=== PATIENT | male | born 1980 | race African-American/Black ===

== ENCOUNTER 2016-07-06 13:36 | Inpatient (IN) | payer MEDICARE ==
[~2016-07-06] VITALS: Ht 190.5 cm; Wt 124.3 kg
[~2016-07-06 13:36] MED LIST: ALLEGRA 60 MG T60 MG PO; APRESOLINE50 MG PO; BENADRYL25 MG PO; BENADRYL50 MG PO; BENICAR40 MG PO; BUPROPION PO; CARAFATE1 G PO; CATAPRES0.1 MG PO; COMBIVENT RESPIM4 GM INH; COREG12.5 MG PO; COREG25 MG PO; COUMADIN2.5 MG PO; COUMADIN5 MG PO; COZAAR100 MG PO; HYDRALAZINE HCL25 MG PO; HYDROCODONE-APA1 TAB PO; KLONOPIN1 MG PO; LEVEMIR100 U/M1 SQ; LEXAPRO10 MG PO; LOPRESSOR25 MG PO; LYRICA75 MG PO; METOPROLOL TAR100 M1; METOPROLOL TAR100 M1 PO; NEPHRO-VITE RX1 TAB PO; NEPHROCAPS SOFTG1 MG PO; NORCO 7.5/325 T1 TA1 PO; NORVASC10 MG PO; NOVOLIN R100 U/ML SQ; NOVOLOG100 U/M1 SQ; PHOSLO667 MG PO; PLAVIX75 MG PO; PREDNISONE10 MG PO; PREDNISONE5 MG; PREDNISONE50 MG PO; PRILOSEC20 MG PO; REGLAN5 MG PO; RENO; RENVELA800 MG PO; ROCALTROL0.25 MCG PO; SENSIPAR30 MG PO; SENSIPAR60 MG PO; SENSIPAR90 MG PO; SEROQUEL25 MG PO; SODIUM BICARBO650 MG PO; TUMS500 MG PO; ULTRAM50 MG PO; WELLBUTRIN SR150 MG PO; ZYRTEC10 MG PO
[2016-07-06] MEDS ORDERED: LEVEMIR100 U/M1 SC ×2 (14:10→14:12)
[2016-07-06 14:35] VITALS: BP 194/108; BMI 32.8
[2016-07-06 16:03] LABS: BASOPHILS 0.9 % (0.0-2.0); EOSINOPHILS 13.2 % (0-7); HEMATOCRIT 32.9 % (42.0-54.0); HEMOGLOBIN 10.6 g/dL (13.5-17.5); IMMATURE GRANULOCYTES 0.2 % (0-5); LYMPHOCYTES 23.1 % (15-50); MCH 30.4 pg (26.0-34.0); MCHC 32.2 g/dL (31.0-37.0); MCV 94.3 fL (80.0-100.0); MEAN PLATELET VOLUME 10.9 fL (7.4-10.4); NEUTROPHILS 55.6 % (40-80); PLATELET COUNT 130 10x3/uL (130-400); RBC 3.49 10x6/uL (4.20-6.10); RDW 13.8 % (11.5-14.5); WBC 5.5 10x3/uL (4.8-10.8)
[2016-07-06 16:16] LABS: INR 0.94 (0.85-1.17); PROTIME 12.4 SECONDS (11.6-15.0)
[2016-07-06 16:20] LABS: ALBUMIN 3.2 g/dL (3.4-5.0); ANION GAP 17.7 mmol/L (8-16); BILIRUBIN - TOTAL 0.33 mg/dL (0.2-1.3); CALCIUM 7.2 mg/dL (8.5-10.1); CARBON DIOXIDE 29.2 mmol/L (21.0-32.0); CREATININE - SERUM 12.9 mg/dL (0.6-1.3); PHOSPHOROUS 5.3 mg/dL (2.5-4.9); POTASSIUM - SERUM 4.9 mmol/L (3.5-5.1); PROTEIN - SERUM 7.1 g/dL (6.4-8.2)
--- NOTE | 2016-07-06 21:08 | NUR ---
SET UP FOR DIALYSIS. PT IS AAOX3. ACCESSED AVF ARTERIAL LINE. BLOOD FLASH AND GOOD PUMPING. WAS ABLE TO ACCESS VENOUS SITE WITH DIFFICULTY. WENT TO FILL CANNULA WITH BLOOD AND BOTH ARTERIAL AND VENOUS SITES CLOTTED. TOOK NEEDLES OUT AND HELD PRESSURE. PT DIDN'T WANT TO BE STUCK AGAIN. CALLED ANJU ARORA APN AND LET HER KNOW SITUATION. REVIEWED LABS WITH HER. HOLDING DIALYSIS TONIGHT AND WILL DO AFTER FISTULAGRAM PT WANTS TO TAKE 4-5L OF FLUID OFF.
--- NOTE | 2016-07-06 22:59 | NUR ---
PT B/P IS ELEVATED 220/112 MANUALLY. CALL TO RENAL MULTIPLE NEEDLE STITCHER UNIX DEVELOPER. SPOKE WITH ANJU ARORA, NEW ORDERS RECEIVED FOR HS MEDICATIONS. PT AND HIS SPOUSE UPDATED ON POC, THEY BOTH VERBALIZED UNDERSTANDING. WILL MONITOR.
[2016-07-07] VITALS (7 sets, daily range): BP systolic 171–222; BP diastolic 87–120; Ht 190.5 cm; Wt 124.3 kg
[2016-07-07 05:38] LABS: BASOPHILS 0.5 % (0.0-2.0); EOSINOPHILS 1.1 % (0-7); HEMATOCRIT 34.9 % (42.0-54.0); HEMOGLOBIN 11.4 g/dL (13.5-17.5); IMMATURE GRANULOCYTES 0.4 % (0-5); LYMPHOCYTES 14.2 % (15-50); MCH 30.1 pg (26.0-34.0); MCHC 32.7 g/dL (31.0-37.0); MEAN PLATELET VOLUME 11.2 fL (7.4-10.4); MONOCYTES 1.8 % (2-11); RBC 3.79 10x6/uL (4.20-6.10); RDW 13.6 % (11.5-14.5); WBC 5.6 10x3/uL (4.8-10.8)
[2016-07-07 05:46] LABS: MCV 92.1 fL (80.0-100.0); PLATELET COUNT 158 10x3/uL (130-400)
[2016-07-07 05:49] LABS: ANION GAP 17.5 mmol/L (8-16); CALCIUM 7.5 mg/dL (8.5-10.1); CARBON DIOXIDE 25.6 mmol/L (21.0-32.0); CREATININE - SERUM 14.2 mg/dL (0.6-1.3)
[2016-07-07 05:51] LABS: POTASSIUM - SERUM 7.1 mmol/L (3.5-5.1)
[2016-07-07 05:52] LABS: INR 0.9 (0.85-1.17)
--- NOTE | 2016-07-07 06:09 | NUR ---
SPOKE WITH DELMAR PURDY VALIDATION LEADER FOR RENAL. NOTIFIED OF PT K+ BEING 7.1 THIS AM. ALSO NOTIFIED OF PT B/P REMAINING HYPERTENSIVE. ORDER RECEIVED FOR ONE TIME DOSE OF CLONIDINE AND TO HAVE PT REDRAWN ON LAB THIS AM.
--- NOTE | 2016-07-07 06:40 | NUR ---
CALL FROM OR RECEIVED TO PRE OP PT AT THIS TIME. DONE PER ORDERS. EXPLAINED TO RANJIT IN SURGERY PT WITHOUT ORDER TO OBTAIN CONSENT OR FOR WHAT PROCEDURE. ALSO EXPLAINED PT IS WITHOUT IV AND SHE STATED THEY COULD DO AN IV WHILE HE WAS IN SURGERY. PT GIVEN ALL PO PRE OP MEDS AND ONE TIME CLONIDINE ORDER AT THIS TIME.
--- NOTE | 2016-07-07 07:07 | NUR ---
SPOKE WITH DR DUMONT, RECEIVED ORDER TO OBTAIN CONSENT. EXPLAINED TO DR DUMONT THAT PT'S K+ RESULTED @ 7.1 THIS AM. ALSO EXPLAINED THAT RESULTS FROM REDRAW IS PENDING. STATES TO LET SURGERY KNOW PT IS NOT READY TO GO TO OR UNTIL NEW K+ RESULTS. PT AND SPOUSE UPDATED ON POC. VERBALIZE UNDERSTANDING. CONSENTS SIGNED AT THE BEDSIDE.
--- NOTE | 2016-07-07 07:53 | NUR ---
ALERT AND ORIENTED X4. POTASSIUM REDRAW RESULT 7.5. ANJU NOTIFIED. 30mL KAYEXALATE ORDERED. OR REFUSE KAYEXALATE. PLAN FOR HEMOSPLIT PLACEMENT FOR DIALYSIS POST OP. CONSENTS FOR PROCEDURE SIGNED ON CHART. TAKEN TO PROCEDURE VIA BED. CONTINUE PLAN OF CARE AND SAFETY PRECAUTIONS.
--- NOTE | 2016-07-07 10:00 | NUR ---
RETURN TO ROOM VIA BED FROM SURGERY. HEMOSPLIT PLACED RT THIGH. IV PLACED RT WRIST SL. BP-202/104, P-77, R-16, O2-99%RA, T-97.5. SEDATED, EASILY TO AROUSE. CONTINUE PLAN OF CARE. INITIATE TELEMETRY MONITORING. 86 SINUS RHYTHM ON TELEMETRY. BED LOCKED AND LOW. CALL LIGHT IN REACH. TWO SIDERAILS UP.
--- NOTE | 2016-07-07 10:01 | NUR ---
BACK FROM OR. VS STABLE. HAS GROIN CVL. DIALYSIS WILL PUT PROPER DRESSING ON. PIV IN R HAND. WILL CONTINUE TO MONITOR.
--- NOTE | 2016-07-07 18:22 | NUR ---
ALERT AND ORIENTED X4. SITTING UP IN BED. CONSENTS SIGNED ON CHART FOR PROCEDURE 07/08/16. BP-173/116. NO PRN BP MEDICATIONS ORDERED. PAGE JERRY, RENAL FOOD CASHIER. CONTINUE PLAN OF CARE AND SAFETY PRECAUTIONS.
--- NOTE | 2016-07-07 22:56 | NUR ---
INITIAL ROUNDS COMPLETED AT 1915 HRS. PT RESTING WITH EYES CLOSED. RESP EVEN AND REGULAR. ASSESSMENT COMPLETED AT 2000 HRS. IV TO INNER R WRIST SL. R THIGH HEMOSPLIT NOTED. ROYAL. PALPABLE PERIPHERAL PULSES. OLD FISTULA NOTED TO UPP R ARM. FISTULA TO LFA WITH SLUGGISH THRILL. PM FSBS 387. REGULAR INSULIN GIVEN SUB-Q PE S/S. PM SNACK SERVED. PM BP 178/98. Funmi MCKENZIE APN CALLED AT 2230 REGARDING BP AND BS OF 387 AND TX. NEW ORDERS RECEIVED AND NOTED. PT CURRNTLY EATING A SNACK. WILL CONTINUE TO MONITOR. SR UP X2,CALL LIGHT PAVAN GONZALES. .
[2016-07-08] VITALS (7 sets, daily range): BP systolic 131–240; BP diastolic 65–109
--- NOTE | 2016-07-08 00:05 | NUR ---
NORCO 10/325, CATATPRES 0.1MG AND LOPRESSOR 50MG PO GIVNE AT 2338 HRS. REINFORCED NPO AFTER MIDNIGHT. PT STATED UNDERSTANING. MOTHER AT BEDSIDE. WILL CONTINUE TO MONITOR.
--- NOTE | 2016-07-08 00:52 | NUR ---
DEMENTIA PROGRAM DIRECTOR STATES SBP 240. RECHECKED MANUALLY WITH RESULTS 228/108. IV TO INNER R WRIST INFILTRATED. RENAL SERVICES CALLED.
--- NOTE | 2016-07-08 00:57 | NUR ---
Funmi MCKENZIE APN RETUNED PAGE. INFORMED OF CURRENT BP AND NO IV ACCESS. NEW ORDERS RECEIVED AND NOTED.
--- NOTE | 2016-07-08 01:05 | NUR ---
IV TO INNER R WRIST DC'D WITH CATHETER INTACT. PT TOLERATED WELL. LIFE EDUCATOR INFORMED OF PT'S BP AND NEW BP MEDS ORDERED PER RENAL SERVICES. WILL CONTINUE TO MONITOR.
--- NOTE | 2016-07-08 01:21 | NUR ---
BENICAR 40MG, NORVASC 10MG AND CATAPRES 0.1 MG PO GIVEN WITH A SIP OF WATER. WILL RECHECK BP IN 90 MINUTES. WILL CONTINUE TO MONITOR.
--- NOTE | 2016-07-08 03:02 | NUR ---
BP RECHECKED WITH 194/99 RESULTED. BP TRENDING DOWN. WILL CONTINUE TO MONITOR.
--- NOTE | 2016-07-08 04:13 | NUR ---
PT AWAKE; DENIES ANY DISCOMFORT. FAMILY AT BEDSIDE.
--- NOTE | 2016-07-08 04:31 | NUR ---
AM HIBICLENS BATH DONE, BED LINENS CHAMGED. WILL CONTINUE TO MONITOR.
--- NOTE | 2016-07-08 06:50 | NUR ---
AM FSBS 378. NO COVERAGE PT NPO BABITA SURGERY. BP RECHECKED WITH SBP 200. WILL CONTINUE TO MONITOR.
[2016-07-08 06:53] LABS: BASOPHILS 0.1 % (0.0-2.0); EOSINOPHILS 0 % (0-7); HEMATOCRIT 32.9 % (42.0-54.0); HEMOGLOBIN 10.9 g/dL (13.5-17.5); IMMATURE GRANULOCYTES 0.4 % (0-5); LYMPHOCYTES 8.7 % (15-50); MCH 30.9 pg (26.0-34.0); MCHC 33.1 g/dL (31.0-37.0); MCV 93.2 fL (80.0-100.0); MEAN PLATELET VOLUME 10.2 fL (7.4-10.4); MONOCYTES 8.9 % (2-11); NEUTROPHILS 81.9 % (40-80); PLATELET COUNT 163 10x3/uL (130-400); RBC 3.53 10x6/uL (4.20-6.10)
[2016-07-08 07:02] LABS: WBC 7.6 10x3/uL (4.8-10.8)
[2016-07-08 07:16] LABS: ANION GAP 21.7 mmol/L (8-16); CALCIUM 7.2 mg/dL (8.5-10.1); CARBON DIOXIDE 25.6 mmol/L (21.0-32.0); CREATININE - SERUM 11.1 mg/dL (0.6-1.3); POTASSIUM - SERUM 5.3 mmol/L (3.5-5.1)
[2016-07-08 07:23] LABS: INR 0.93 (0.85-1.17); PROTIME 12.3 SECONDS (11.6-15.0)
--- NOTE | 2016-07-08 07:43 | NUR ---
PAGED JERRY REYEZ NP TO SEE ABOUT PTS HOME MEDICATIONS BECAUSE NO MEDICATIONS WERE ORDERED TO BE GIVEN THIS AM AND PER REPORT PT DOES TAKE BLOOD PRESSURE MEDICATIONS. WILL AWAIT CALLBACK.
--- NOTE | 2016-07-08 07:50 | NUR ---
0715 AM ROUNDING- RECEIVED REPORT FROM NATURAL RESOURCES PROFESSOR NURSE ANEL LAWSON. PT IS CURRENTLY LAYING IN BED ON LEFT SIDE WITH EYES CLOSED RESTING. GUEST AT BEDSIDE. ON MONITOR SHOWING SR, HR 70. FSBS ACHS, 378 THIS AM THAT WAS NOT COVERED BY NATURAL RESOURCES PROFESSOR NURSE BECAUSE PT IS NPO. NPO CURRENLTY FOR PROCEDURE THIS AM. CONSENTS ARE SIGNED AND IN CHART. PT HAS NO IV ACCESS CURRENLTY, PER NATURAL RESOURCES PROFESSOR NURSE PT IS AN EXTREMLEY HARD STICK AND THEY COULD NOT GET ANOTHER ONE ON NATURAL RESOURCES PROFESSOR. JERRY MCKENZIE NP IS AWARE. ON ROOM AIR. HEMOSPLIT SEEN TO RIGHT THIGH FOR DIALYSIS (PT DIALYZED YESTERDAY). RESERVE LEFT ARM FOR AVF, PT IS GOING FOR PROCEDURE THIS AM FOR A AVF REVISION PER REPORT.
--- NOTE | 2016-07-08 08:14 | NUR ---
0815- PRE-OP MEDICATIONS GIVEN ORDERED AND INSTRUCTED BY OR NURSE.
--- NOTE | 2016-07-08 08:21 | NUR ---
DR. BRYANT CALLED TO CHECK ON PT. INFORMED HIM OF PTS BLOOD PRESSUE AND PT NOT HAVING ANY ORDERS IN [facility] FOR HOME BLOOD PRESSURE MEDICATION. DR. BRYANT INFORMED ME TO TALK TO JERRY MCKENZIE NP AND SEE ABOUT GETTING HIM SOMETHING FOR BLOOD PRESSURE BEFORE GOING BACK TO SURGERY. I ALSO INFORMED DR. BRYANT THAT I GAVE PT HIS PRE-OP MEDICATIONS AND LOPRESSOR WAS ONE OF THEM. DR. BRYANT STATED THAT WOULD NOT PROBABLY BE ENOUGH AND TO SEE ABOUT GETTING SOMETHING ELSE WHEN TALKING WITH JERRY MCKENZIE NP. WILL CALL JERRY MCKENZIE NP AND AWAIT NEW ORDERS. WILL CONTINUE TO MONITOR.
--- NOTE | 2016-07-08 08:24 | NUR ---
SPOKE WITH JERRY MCKENZIE NP. NEW ORDERS RECEIVED FOR CATAPRES 0.2MG. WILL GIVE PT THIS MEDICATION ORDERED AND CONTINUE TO MONITOR.
--- NOTE | 2016-07-08 08:38 | NUR ---
PAGED OR TO INFORM THEM OF PTS BLOOD SUGAR AND IF THEY WANT ME TO COVER PT OR NOT WITH ORDERED INSULIN. NO ANSWER. WILL TRY AND CALL BACK AGAIN BEFORE THEY COME GET PT.
--- NOTE | 2016-07-08 08:39 | NUR ---
CALLED OR AGAIN TO INFORM THEM ABOUT PTS BLOOD SUGAR. NO ANSWER. WILL TRY AND CALL BACK OR NOTIFY THEM WHEN THEY COME TO GET PT. PTS BLOOD SUGAR IS 347 THAT WAS NOT COVERED BY GENERAL SCRAP WORKER NURSE BECAUSE PT IS NPO FOR PROCEDURE. I WAS TRYING TO SEE IF OR WANTED ME TO GO AHEAD AND TX PER SLIDING SCALE OR HOLD UNTIL AFTER PROCEDURE. WILL CONTINUE TO MONITOR AND TRY TO GET AHOLD OF OR.
--- NOTE | 2016-07-08 09:41 | NUR ---
0830- PT TO OR VIA BED.
[2016-07-08 10:13] LABS: HEPATITIS C ANTIBODY <0.1 (0.0-0.9)
--- NOTE | 2016-07-08 11:35 | NUR ---
1109- RECEIVED REPORT FROM ANEL VASQUEZ IN OR. PT IS AWAKE AND ALERT WITH NO C/O OF PAIN AT THIS TIME. BLOOD PRESSURE IS 142/79. BLOOD SUGAR IS [address] BRYANT PT CAN RESUME A ADA DIET PER ANEL VASQUEZ IN OR. PEDRO STATES THAT DR. BRYANT WROTE DOWN ORDERS ON PRESCRIPTION SHEETS DUE TO COMPUTERS BEING DOWN. ANEL VASQUEZ STATES DR. BRYANT STATES TO QUESTION DIALYSIS TODAY AND D/C HOME WHEN OKAY WITH RENAL. DR. BRYANT ALSO STATES TO CALL RENAL FOR MEDICATION ORDERS. WILL AWAIT PT ARRIVAL. 1121- PT BACK FROM OR VIA BED ACCOMPANIED BY OR STAFF MEMBERS. WILL START VITALS AND CONTINUE TO MONITOR. WILL AWAIT NEW ORDERS.
--- NOTE | 2016-07-08 12:03 | NUR ---
JERRY MCKENZIE NP ON UNIT. INFORMED HER THAT PTS HOME MEDICATIONS WERE D/C ON SHIFT LAST NIGHT FOR SOME REASON. ASKED JERRY TO RESTART PTS HOME MEDICATIONS. JERRY MCKENZIE NP STATED OKAY. I INFORMED JERRY MCKENZIE NP THAT PER ANEL VASQUEZ IN OR, DR. BRYANT WANTED RENAL TO LOOK AT PTS MEDICATIONS AND RESTART SOMETHING FOR BLOOD PRESSURE AND THAT DR. BRYANT WANTED US TO CALL RENAL FOR MEDICATIONS IN GENERAL. JERRY MCKENZIE NP STATED OKAY. WILL CONTINUE TO MONITOR AND AWAIT NEW ORDERS.
--- NOTE | 2016-07-08 18:35 | NUR ---
PT LAYING IN BED ON BACK WITH EYES OPEN WATCHING TV. IS AT BEDSIDE. NO NEED AT CURRENT TIME. WILL CONTINUE TO MONITOR.
[2016-07-09 00:12] VITALS: BP 165/80
--- NOTE | 2016-07-09 00:24 | NUR ---
PT WITH PAIN TO LEFT ARM INCISIONAL AREA. MEDICATED WITH PAIN PILL/NORCO X 1. AT BEDSIDE. CPOC.
--- NOTE | 2016-07-09 01:44 | NUR ---
PT RESTING IN BED, TOOK A PAIN PILL EARLIER AND IS NOW LYING WITH EYES CLOSED. LEFT ARM IS ELEVATED ON PILLOW. DRESSING TO LEFT UPPER ARM INCISION SITE IS C/D/I. RIGHT GROIN HEMOSPLIT. NONLABORED RESPIRATIONS ON ROOM AIR. SR PER TELEMETRY. AT BEDSIDE. CPOC.
[2016-07-09 04:00] VITALS: BP 160/81
--- NOTE | 2016-07-09 07:15 | NUR ---
0553 AM FSBS 62. INFORMED PT THAT WOULD BRING HIM SOME JUICE AND CRACKERS AND TO MAKE SURE HE EATS A GOOD BREAKFAST WHEN IT COMES. THIS NURSE THEN WENT TO SEVERAL OTHER ROOMS AND DID NOT RETURN IMMEDIATELY WITH THE JUICE AND CRACKERS, SO HIS CAME TO THE NURSES STATION AND REQUESTED IT. SHE WAS PROVIDED WITH THE JUICE AND CRACKERS AND TOOK THEM BACK TO HER . THIS NURSE WAS GIVING REPORT, RECOLLECTION OF FSBS BEING 62 CAME UP AND ASKED DNA SEQUENCING ASSOCIATE TO GO TO ROOM WITH JUICE AND CRACKERS, NOT KNOWING THAT HAD ALREADY COME OUT OF ROOM AND GOTTEN SOME. NIGHT DNA SEQUENCING ASSOCIATE DELIVERED THE JUICE AND CRACKERS. WHEN DAY DNA SEQUENCING ASSOCIATE ROUNDED, PT'S VERY UPSET WITH THIS NURSE THAT NO FOLLOW UP HAD BEEN DONE. RECHECKED PT'S FSBS AT THIS TIME AT IT WAS NOW 168. APOLOGIZED TO PT AND SPOUSE ON LAPSE IN COMING BACK.
--- NOTE | 2016-07-09 07:44 | NUR ---
AM ROUNDING- RECEIVED REPORT FROM FENCE POST DRIVER NURSE LATESHA BRUNNER. PT IS CURRENTLY SITTING UP IN BED WITH EYES OPEN RESTING. C/O PAIN FROM RIGHT LEG. IS AT BEDSIDE. ON MONITOR SHOWING SR, HR 77. FSBS ACHS, 62 THIS AM. LATESHA BRUNNER STATES SHE GAVE PT APPLE JUICE AND GRAHM CRACKERS AND RECHECKED PTS BS AND REPORTED TO BE IT IS NOW IN THE NORMAL RANGE. PT HAS NO IV (DOCTORS ARE AWARE). RIGHT GROIN HEMOSPLIT FOR DIALYSIS. RESERVE LEFT ARM FOR AVF (PT HAD FISTULA GRAM YESTERDAY ON LEFT AVF) WITH + BRUIT, + THRILL. PT HAS OLD AVF SITE TO RIGHT ARM THAT DOES NOT WORK ANYMORE PER REPORT. PT IS SUPPOSE TO DIALYZE THIS AM PER FENCE POST DRIVER NURSE. WILL GET PT PRN NORCO FOR PAIN AND CONTINUE TO MONITOR.
[2016-07-09 08:40] VITALS: BP 149/84
[2016-07-09 13:55] VITALS: BP 157/84
[2016-07-09 15:58] VITALS: BP 155/79
--- NOTE | 2016-07-09 16:12 | NUR ---
PT TO DIALYSIS VIA WHEELCHAIR.
--- NOTE | 2016-07-09 17:19 | NUR ---
PT IN DIALYSIS. NO NEED AT CURRENT TIME. WILL CONTINUE TO MONITOR.
--- NOTE | 2016-07-09 19:29 | NUR ---
PT IN DIALYSIS. DIALYSIS CALLED AND STATED PT BEDLIVES BS IS LOW. BS CHECKED WITH RESULTS OF 150.
--- NOTE | 2016-07-09 19:52 | NUR ---
HEMODIALYSIS COMPLETED, NET FLUID REMOVAL OF 5000ML, TOLERATED WELL, BLOOD RETURNED, LINES FLUSHED, HEPARIN DWELLING USING ASEPTIC TECHNIQUE. DRESSING CHANGED TO SITE ASWELL.
[2016-07-09 20:15] VITALS: BP 168/87
--- NOTE | 2016-07-09 23:43 | NUR ---
PT BACK FORM DIALYSIS AT APPROX 2005 HRS. HAS C/O R THIGH PAIN. NORCO PO GIVEN. ASSESSMENT COMPLETED AT 2030 HRS. VSS. SR PER CM HR 92. LAVF WITH GOOD BRUIT AND THRILL. OLD FISTULA NOTED TO UPPER R ARM. 1+ EDEMA NOTED TO L ARM. R THIGH HEMOSPLIT CLEAN, DRY AND INTACT. PALBABLE PEDAL PULSES. PM FSBS 162. SCHEDULED LEVIMIT GIVEN. PM MEDS GIVEN. PM SNACK AND SNADWICH TRAY GIVEN. PT CURRENTLY RESTING WITH EYES CLOSED. RESP EVEN AND REGULAR. SR UP X2, CALL LIGHT WITHIN REACH. FIANCEE AT BEDSIDE.
--- NOTE | 2016-07-10 00:30 | NUR ---
PT RESTING WITH EYES CLOSED. RESP EVEN AND REGULAR. SR UP X2, CALL LIGHT WITHIN REACH.
[2016-07-10 01:00] VITALS: BP 150/83
--- NOTE | 2016-07-10 02:15 | NUR ---
PT AWAKE, DENIES ANY DISCOMFORT. WILL CONTINUE TO MONITOR.
--- NOTE | 2016-07-10 04:39 | NUR ---
PT AWAKE; DENIES ANY DISCOMFORT. WILL CONTINUE TO MONITOR.
[2016-07-10 04:45] VITALS: BP 151/88
--- NOTE | 2016-07-10 06:33 | NUR ---
VSS THROUGHOTU NGIHT. SR PER CM. PT STATED NORCO HELPED PAIN. NEEDS MET; WILL CONTINUE TO MONITOR.
[2016-07-10 07:58] VITALS: BP 143/90
--- NOTE | 2016-07-10 12:36 | NUR ---
RETURN TO ROOM FROM DIALYSIS. BP-140/65, SINUS TACH 102bpm ON TELEMETRY. COMPLAINS OF LIGHT HEADEDNESS. ENCOURAGE DEEP BREATHING. FAMILY AT BEDSIDE. EATING LUNCH. DENIES SOB. CONTINUE TO MONITOR. CONTINUE SAFETY PRECAUTIONS.
--- NOTE | 2016-07-10 15:46 | NUR ---
SPOKE WITH PEDRO/DR. DUMONT'S OFFICE VIA PHONE TO LET HER KNOW THE PATIENT WAS DISCHARGING AND THAT A PROCEDURE NEEDED TO BE SCHEDULED FOR PT WITH DR. DUMONT IN 3 WEEKS. SHE ADVISED THAT DR. DUMONT'S OFFICE WOULD TAKE CARE OF SCHEDULING THE PROCEDURE AND CONTACT PATIENT WITH ALL INFORMATION
[2016-07-10 16:40] VITALS: BP 134/65
--- NOTE | 2016-07-10 17:21 | NUR ---
ALERT AND ORIENTED X4. SITTING UP IN BED EATING DINNER. DENIES PAIN OR SOB. DC HELD OFF UNTIL MORNING. BUS TRANSPORT UNABLE TODAY, MUST BE CALLED IN MORNING. FAMILY AT BEDSIDE. DENIES FEELING LIGHT HEADED. SINUS RHYTHM 90bpm ON TELEMETRY. CONTINUE PLAN OF CARE AND SAFETY PRECAUTIONS.
--- NOTE | 2016-07-10 20:00 | NUR ---
ASSESSMENT DONE. PT SITTING UP IN BED A/O, WATCHING TV. MOTHER AT BEDSIDE. HEMESPLIT TO RT GROIN, DRESSING CLEAN, DRY, AND INTACT. PT C/O PAIN 09/23 AT [facility] SITE. PT HAD PRN NORCO AT 1735. PT STATES PAIN IS "REALLY JUST WHEN I MOVE MY LEG." NO DISTRESS NOTED. CALL LIGHT WITH IN REACH. WILL CONT. TO MONITOR.
[2016-07-10 21:02] VITALS: BP 146/72
[2016-07-11 00:14] VITALS: BP 155/56
--- NOTE | 2016-07-11 00:54 | NUR ---
RUNWAY MODEL AT BEDSIDE, NEEDS ADDRESSED AT THIS TIME. CALL LIGHT IN REACH. WILL CONT TO MONITOR.
--- NOTE | 2016-07-11 02:47 | NUR ---
PT SLEEPING. RESP EVEN AND UNLABORED. NO DISTRESS NOTED. FAMILY AT BEDSIDE. CALL LIGHT WITH IN REACH. WILL CONT. TO MONITOR.
[2016-07-11 05:11] VITALS: BP 134/78
[2016-07-11 07:56] VITALS: BP 154/83
--- NOTE | 2016-07-11 08:50 | NUR ---
Patient Name: ROCCO DURAN Encounter No: [id number] : 1980 Primary Insurance: MEDICARE A & B Anticipated DC Date: 07-10-2016 Planned Disposition: Home External Planned Provider: [facility] DCP follow-up note: CM PLACED CALL TO [facility] TO ARRANGE VAN TRANSPORTATION FOR PATIENT. CM SPOKE WITH ALEXA AT [facility] WHO STATED [facility] WILL ARRIVE AROUND NOON TODAY TO TRANSPORT PATIENT AND HIS MOTHER BACK TO [place]. CM FAXED DC INFO TO [facility] TO BEGIN HH SERVICES. HH AGENCY WILL CALL PATIENT TO ARRANGE FIRST HH VISIT. NO FURTHER DC NEEDS VOICED. Alexa Chery RN, CM
--- NOTE | 2016-07-11 09:40 | NUR ---
Patient Name: ROCCO DURAN Encounter No: [id number] : 1980 Primary Insurance: MEDICARE A & B Anticipated DC Date: 07-10-2016 Planned Disposition: Home External Planned Provider: [facility] DCP follow-up note: CM PLACED CALL TO [facility] TO ARRANGE VAN TRANSPORTATION FOR PATIENT. CM SPOKE WITH ALEXA AT [facility] WHO STATED [facility] WILL ARRIVE AROUND NOON TODAY TO TRANSPORT PATIENT AND HIS MOTHER BACK TO [place]. NO FURTHER DC NEEDS VOICED. Alexa Chery RN, CM
--- NOTE | 2016-07-11 09:42 | NUR ---
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 Discharge Planning Comments: * Is the patient Alert and Oriented? Yes 0 * How many steps to enter\exit or inside your home? 1 0 * PCP ANALISA ALFONSO 0 * Pharmacy [facility] 0 * Preadmission Environment Home with Family 0 * ADLs Partial Dependent 0 * Partial ADLs (Assistance needed) Bathing Dressing Medication Management 0 * Equipment Glucometer 0 * Other Equipment NO MEDICAL EQUIPMENT PROVIDER PREFERENCE 0 * List name and contact numbers for known caregivers / representatives who currently or will assist patient after discharge: DEEP ARIAS, 0 * Community resources currently utilized Other 0 * Please name any agencies selected above. [facility], WAS DOING HOME DIALYSIS- TRANSITION NOW TO OUTPATIENT HEMODIALYSIS: [facility], T/T/SA, 0700 AM [facility] (MEDICAID) TRANSPORT BUS 0 * Additional services required to return to the preadmission environment? Yes * Can the patient safely return to the preadmission environment? Yes 0 * Has this patient been hospitalized within the prior 30 days at any hospital? No [address] BLANK, RN CHRISTINA DALEY CONTACTED DAYANA ELLIS OF [facility] REGARDING ORDER TO ARRANGE OUTPATIENT DIALYSIS. CM MET WITH PT IN ROOM TO DISCUSS DISCHARGE PLANNING AND NEEDS. PT REPORTS LIVING AT HOME DEPENDENT UPON HIS FIANCE FOR ASSISTANCE WITH MEDICATION MANAGEMENT, BATHING AND DRESSING. PT HAS A GLUCOMETER WITH NO MEDICAL EQUIPMENT PROVIDER. PT HAS NO OUTSIDE SERVICES ASSISTING IN THE HOME. CM DISCUSSED AVAILABILITY OF HOME HEALTH, REHAB SERVICES AND MEDICAL EQUIPMENT. PT REPORTS HE NEEDS OUTPATIENT HEMODIALYSIS AFTER HE RESTARTED HOME DIALYSIS AND HIS ACCESS BECAME CLOGGED AGAIN; PT ALSO REPORTS NEEDING A RIDE HOME TODAY FOR HE AND HIS FIANCE, THEY USUALLY TAKE THE SEAT BUS AND HAVE NO FAMILY OR FRIENDS TO COME AND PICK THEM UP. PT DENIES HAVING FINANCIAL RESOURCES TO GET HIM HOME FROM [place]. IMPORTANT MESSAGE FROM MEDICARE PROVIDED AND EXPLAINED. CM CALLED DAYANA ELLIS OF [facility] WHO PROVIDED OUTPATIENT SCHEDULE AT [facility], T/T/SA, 0700AM, FIRST APPOINTMENT FOR 07-13-16. CM CALLED [facility], , TO ARRANGE TRANSPORT HOME FOR PT AND HIS FIANCE. CM WAS ADVISED BY ANJU THAT IT WAS TOO LATE TODAY AND TO CALL BACK FIRST THING IN THE MORNING. CM NOTIFIED PT WHO DENIES HAVING ANY OTHER WAY HOME AND ASKED CM TO ARRANGE SE[facility] BUS FOR TOMORROW MORNING. CM CALLED [employer] [facility], RECEIVED ESTIMATE OF $375 FOR TWO PASSENGERS FROM [employer] TO [place]. CM SPOKE TO DIRECTOR [facility] WHO ADVISED THAT [facility] WILL NOT BE AUTHORIZED. CM TO CALL [facility], , TO ARRANGE TRANSPORT HOME FOR PT AND HIS FIANCE, FIRST THING IN THE MORNING, 07-11-16. Can Crimper: Bubba Jordan
--- NOTE | 2016-07-11 09:48 | OP ---
PATIENT NAME: ROCCO DURAN JR MEDICAL RECORD: [id number] :81 LOCATION:D. D.2129 ADMISSION DATE:07/06/16 SURGEON: COLIN DUMONT MD DATE OF OPERATION: 07/08/2016 REFERRED BY: Dr. Calderon of [place]. ATTENDING CLIENT SUPPORT PROFESSIONAL: Here in [place], Dr. Blank. PREOPERATIVE DIAGNOSES: End-stage renal disease with dependence upon hemodialysis and a poorly functioning left brachial artery to translocated basilic vein arteriovenous fistula, now 1 day status post implantation of a tunneled dialysis catheter in the right common femoral vein for urgent dialysis and now returned to the operating room for fistulogram indicated procedures as planned. Those diagnosis codes, N18.6, Z99.2 and ____. OPERATION PERFORMED: Today, ultrasound-guided vascular access, left arm AV fistula and AV fistulogram with balloon angioplasty of venous stenoses in the swing segment of the proximal left basilic vein and then the distal axillary vein. The CPT codes are 64914 modifier 58 and 67221 modifier 26. PREOPERATIVE NOTE: Mr. Duran is a 36-year-old -Mauritanian male from [place], [place]. He has end-stage renal disease and is on chronic hemodialysis. He, not too long ago, had a dialysis access complication and lost his dialysis access and had to go to a catheter and I had been created a left brachial artery to translocated basilic vein AV fistula that has been used now for about 6 months I believe and the patient had only just been released to continue his own dialysis at home a short while ago. He reports difficulty and sticking the arterial end of the fistula with drawing clots from the fistula and rising venous pressures and post-decannulation bleeding from the fistula. He was admitted to the hospital this week with plans for a fistulogram following day, which was yesterday; however, the patient was hyperkalemic and attempts to access this fistula were unsuccessful, so rather than doing a fistulogram yesterday, he was brought to the operating room and had a tunneled dialysis catheter placed in his right common femoral vein and then had a successful dialysis yesterday. His potassium is 5.5 this morning and he is considered suitable for a procedure today under local MAC anesthesia, though his blood pressure is quite high and will be treated intraoperatively as needed. Under IV sedation and monitoring per COLLATOR OPERATOR, the patient was placed in supine position and prepped and draped in sterile manner. Local anesthesia 1% lidocaine without epinephrine was infiltrated into the skin at a proposed puncture site. 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 Also, proximal to that and the axillary vein was a significant stenosis. These areas were dilated successfully with an 8 mm diameter balloon, which required inflation to 20 atmospheres to totally efface. Repeated contrast injections revealed a 100% resolution of the 2 areas of stenosis and there were visual as well as a palpable signs of improved flow and lowered pressures in the fistula. Contrast injection was then continued and the fistula imaged all the way to the right atrium and there was no evidence of OPERATIVE REPORT [id number] ROCCO DURAN JR any central venous obstruction. There was no evidence of any arterial inflow impairment or obstruction. The 6-Thai introducer was removed, hemostasis was obtained with a mtnhhr-cy-ohzue 4-0 Prolene suture and some direct digital pressure. The puncture site was dressed with Avitene Ultrafoam, Tegaderm, and Cavilon skin prep and the patient then taken to the recovery room. Blood loss during the operation was almost nil and certainly unreplaced. All sponges, instruments and needles were accounted for. No drain was used and no surgical specimen was submitted for histopathology. PLAN: The patient will be returned to his room on med 2 today and allowed to resume his renal ADA diet and his usual blood pressure medications and diabetic medications. He does have a history of IODINE AND SHELLFISH ALLERGY and for that reason, was pretreated the day before yesterday and yesterday with steroids, anticipating contrast injection yesterday. He was pretreated again today with Solu-Medrol prior to the actual fistulogram. I anticipate that his blood sugars will be elevated over the next 24 hours resulting from the steroids, at least he has done this in the past. He should be able to go home when okay with nephrology when his blood pressure is under control and his blood sugars under control, to continue dialysis not at home, but at the [facility] unit in [place]. The tunneled dialysis catheter in the right groin should be used for dialysis for 2 weeks, that will allow his fistula to "rest" and the hematoma surrounding the fistula to stabilize and began to resolve. After 2 weeks, I believe that we should once again start accessing the fistula and if it functions well and it is not difficult to access and drawing the clots and venous pressures are normal, then 3 weeks from now, have him return here to remove his tunneled dialysis catheter. Outpatient local anesthesia. He will not need premedication at that time as I do not plan contrast injection; however, if he is not dialyzing well with his fistula or has rising or abnormal pressures, drawing clots, difficult access, et cetera, then he should be premedicated and should have another fistulogram at that time. TRANSINT:[id number] Voice Confirmation ID: [id number] DOCUMENT ID: [id number] COLIN DUMONT MD at 0948 CC: BO BLANK MD and TAMIR CALDERON III MD [id number] DICTATION DATE: 07/08/16 1120 M[place]ICAN FOOD COOK: 07/08/16 1215 ADM IN [facility] [address] [place] [address]
--- NOTE | 2016-07-11 09:48 | OP ---
PATIENT NAME: ROCCO DURAN JR MEDICAL RECORD: [id number] :81 LOCATION:D. D.2129 ADMISSION DATE:07/06/16 SURGEON: COLIN DUMONT MD DATE OF OPERATION: 07/07/2016 REFERRING PHYSICIAN: Dr. Calderon. ADMITTING PHYSICIAN: Dr. Blank. PREOPERATIVE DIAGNOSIS: Other mechanical complication of left arm brachial translocated basilic arteriovenous fistula. POSTOPERATIVE DIAGNOSIS: Other mechanical complication of left arm brachial translocated basilic arteriovenous fistula.. ADDITIONAL DIAGNOSES: End-stage renal disease and dependence on chronic hemodialysis, insulin-dependent diabetes, hypertension, hyperglycemia, acute hyperkalemia, contrast allergy. ANESTHESIA: Today, general with LMA per CHEN and Dr. Sam. PREOPERATIVE NOTE: Mr. Duran is a 36-year-old diabetic -Nicaraguan male from [place], [place], who has been on dialysis for some time. He has had numerous dialysis access complications. He has had even a HeRO graft in the right upper extremity, which I had to removed due to infection. Now, has been dialyzing for about 6 months, unrelieved, with a left upper extremity brachial artery to translocated basilic vein fistula. He does routine home dialysis 5 or 6 days a week, but up until very recently, has been dialyzing of the dialysis center in [place] until his new fistula matured. He presented to my office yesterday with a history of difficulty accessing near the arterial end of the fistula with the presence of clots and clotting Of the tubing and kidney and also high venous pressures and difficulty generally accessing the fistula. He also on physical examination has an area of eczematous rash, chronic rash of the skin overlying the fistula in the area of repeated puncture. Whether this represents allergic response to topical agents, antiseptics, et cetera or adhesives is unclear. He has been using medication on the skin that he does not know what it is. He was placed in the hospital yesterday with plans to do a fistulogram today with intervention and possibly even discharge to home today. My hope was that the fistula could be accessed in [place], in the more proximal and distal portions of the graft closer to the venous outflow and arterial anastomosis. An attempt was made to dialyze him last evening accessing in that area closer to the arterial anastomosis and I am told that the line repeatedly thrombosed and attempts to dialyze him, then last night were abandoned. This morning, his potassium is 7 and he needs to have acute urgent dialysis. He was also hypertensive, though I do think he received his beta-derrick medication this morning. He is brought to the operating room now after discussion with Dr. Blank with plans to just insert a dialysis catheter, probably in a femoral vein and then to delay perhaps until tomorrow or next week even his fistulogram and intervention. Under general anesthetic with LMA, the patient was prepped and draped in sterile manner. I examined the right groin with ultrasound and found that the right common femoral vein was deep, but patent and I was able to access this with micropuncture technique, which led up then to insertion of a 0.035 guidewire, over which numerous dilators were passed under fluoroscopy and lastly, a dilator OPERATIVE REPORT [id number] ROCCO DURAN JR peel-away sheath. I chose a 42 cm long HemoSplit and passed it from an inferior skin entry site up to the groin incision and then through the peel-away sheath under fluoroscopy, the tip was placed in the upper inferior vena cava. The Dacron felt cuff was about 2 cm from the groin incision and 2 cm from the inferior exit site. Both lumens of the catheter were then accessed and aspirated, free return of blood from each side was confirmed. They were then flushed with saline and then hep-locked with heparin 100 units per cc. The catheter was sutured in place with a 2-0 silk. The groin incision closed with interrupted inverted 3-0 Vicryl and Dermabond glue. Glue was used to seal the entry site of the catheter as well. Both sites were then dressed with Maxorb Ag, Tegaderm and Cavilon skin prep the patient awakened and taken to the recovery room. Blood loss during the procedure was trivial and unreplaced and all sponges, instruments, and needles were accounted for. No drain was used and no surgical specimen was submitted for histopathology. PLAN: For the patient to have urgent hemodialysis this morning via his tunneled dialysis catheter. I will plan to return him to the operating room tomorrow on Sunday, about 9:00 or mid morning and do his fistulogram and indicated procedures. The patient does have a history of contrast allergy and was premedicated for today's aborted procedure. Following the standard protocol, he has received 3 doses of prednisone and also I believe Benadryl and Pepcid. Because of the problem with hyperkalemia, I am not ordering additional oral doses of prednisone for today, but we will plan be given an additional dose of 40 mg of Solu-Medrol as preoperative medication tomorrow morning along with additional Pepcid and Benadryl. TRANSINT:[id number] Voice Confirmation ID: [id number] DOCUMENT ID: [id number] COLIN DUMONT MD at 0948 CC: BO BLANK MD and TAMIR CALDERON III MD [id number] DICTATION DATE: 07/07/16 0957 COMBINER OPERATOR: 07/07/16 1127 ADM IN [facility] [address] [place] [address]
--- NOTE | 2016-07-11 11:35 | NUR ---
ALERT AND ORIENTED X4. DISCHARGE INSTRUCTIONS GIVEN VERBALLY AND WRITTEN. NO IV. RT THIGH HEMOSPLIT DRESSING CLEAN INTACT. DISCHARGE PAPERS SIGNED ON CHART. WAITING FOR PUBLIC TRANSPORTATION TO ARRIVE. CONTINUE PLAN OF CARE AND SAFETY PRECAUTIONS.
--- NOTE | 2016-07-11 12:41 | NUR ---
VAN ARRIVE FOR TRANSPORT HOME. AMBULATES TO VAN. REMAINS FREE FROM INJURY.
== END 2016-07-11 12:44 | disposition home or self-care (01) | DRG 252 ==
LOC: D.M2 13:36
PROVIDERS: Anesthesiology; Surgery; ADMIT Internal Medicine Nephrology
PROC: 5A1D60Z (ICD-10-PCS; principal; 2016-07-06)
PROC: 04HK33Z Insertion of Infusion Device into Right Femoral Artery, Percutaneous Approach (ICD-10-PCS; 2016-07-07)
PROC: 05783ZZ Dilation of Left Axillary Vein, Percutaneous Approach (ICD-10-PCS; 2016-07-07)
PROC: 057C3ZZ Dilation of Left Basilic Vein, Percutaneous Approach (ICD-10-PCS; 2016-07-07)
PROC: B44LZZZ Ultrasonography of Femoral Artery (ICD-10-PCS; 2016-07-07)
PROC: B41F1ZZ Fluoroscopy of Right Lower Extremity Arteries using Low Osmolar Contrast (ICD-10-PCS; 2016-07-07)
PROC: B51W1ZZ Fluoroscopy of Dialysis Shunt/Fistula using Low Osmolar Contrast (ICD-10-PCS; 2016-07-08)
DX: T82.858A Stenosis of other vascular prosthetic devices, implants and grafts, initial encounter (principal); N18.6 End stage renal disease; I12.0 Hypertensive chronic kidney disease with stage 5 chronic kidney disease or end stage renal disease; D68.59 Other primary thrombophilia; Y83.8 Other surgical procedures as the cause of abnormal reaction of the patient, or of later complication, without mention of misadventure at the time of the procedure; E87.5 Hyperkalemia; E10.22 Type 1 diabetes mellitus with diabetic chronic kidney disease; E10.65 Type 1 diabetes mellitus with hyperglycemia; Z99.2 Dependence on renal dialysis; Z79.4 Long term (current) use of insulin; Z91.041 Radiographic dye allergy status

== ENCOUNTER 2016-10-10 11:57 | Inpatient (IN) | payer MEDICARE ==
[~2016-10-10] VITALS: Ht 190.5 cm; Wt 126.5 kg
[~2016-10-10 11:57] MED LIST changes: +LEVEMIR100 U/M1 SC
--- NOTE | 2016-10-10 12:54 | NUR ---
ALERT AND ORIENTED X4. ARRIVE TO ROOM VIA WHEELCHAIR ACCOMPANIED BY SPOUSE. DIRECT ADMIT DUE TO DIALYSIS LT ARM FISTULA CLOTTED. DIALYSIS AT HOME 5 DAYS A WEEK. DENIES SOB. CONTINUE ADMISSION PROCESS. REFUSE SCDs. AMBULATORY GAIT STEADY.
[2016-10-10 13:41] VITALS: BP 118/72; BMI 30.8
[2016-10-10 16:57] LABS: CARBON DIOXIDE 23.2 mmol/L (21.0-32.0); POTASSIUM - SERUM 4.2 mmol/L (3.5-5.1)
[2016-10-10 17:07] LABS: CALCIUM 6.8 mg/dL (8.5-10.1)
[2016-10-10 17:12] LABS: BASOPHILS 1.2 % (0-2); EOSINOPHILS 11.7 % (0-7); HEMATOCRIT 31.8 % (42.0-54.0); HEMOGLOBIN 10.3 g/dL (13.5-17.5); IMMATURE GRANULOCYTES 0.8 % (0-5); LYMPHOCYTES 29.4 % (15-50); MCH 31.6 pg (26.0-34.0); MCHC 32.4 g/dL (31.0-37.0); MCV 97.5 fL (80.0-100.0); MEAN PLATELET VOLUME 10.1 fL (7.4-10.4); NEUTROPHILS 46.9 % (40-80); PLATELET COUNT 159 10x3/uL (130-400); RBC 3.26 10x6/uL (4.20-6.10); RDW 15.2 % (11.5-14.5); WBC 4.9 10x3/uL (4.8-10.8)
--- NOTE | 2016-10-10 17:25 | NUR ---
CRITICAL GLUCOSE 456. PAGE RENAL SECURITY SALES MANAGER.
[2016-10-10 17:48] VITALS: BP 134/71
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
[2016-10-10 19:00] VITALS: BP 175/58
--- NOTE | 2016-10-10 19:50 | NUR ---
PT IS RESTING IN BED WITH EYES CLOSED. AWAKENS EASILY TO VERBAL STIMULI. RIGHT ARM SALINE LOCK NOTED. OLD RIGHT ARM AND LEFT ARM FISTULAS PRESENT. NEITHER ARE WORKING. SR'S ARE UP X 2 IN BED. CALL LIGHT AND BEDSIDE TABLE ARE WITHIN EASY REACH.
--- NOTE | 2016-10-10 22:22 | NUR ---
RESTING QUIETLY IN BED WITH EYES CLOSED. RESPS ARE EVEN AND UNLABORED. NO ACUTE DISTRESS NOTED.
[2016-10-11] VITALS: BP 189/79
--- NOTE | 2016-10-11 01:47 | NUR ---
RESTING QUIETLY IN BED WITH EYES CLOSED. RESPS ARE EVEN AND UNLABORED. NO ACUTE DISTRESS NOTED.
[2016-10-11 04:00] VITALS: BP 183/81
--- NOTE | 2016-10-11 06:30 | NUR ---
PT RESTING IN BED WITH EYES OPEN. NO NEEDS VOICED. PREOP SHOWER DONE. EKG DONE.
--- NOTE | 2016-10-11 07:25 | NUR ---
AM ROUNDS- PT IN BED, DENIES ANY NEEDS AT THIS TIME. BED LOW AND LOCKED, BEDSIDE RAILS X2, CALL LIGHT IN REACH, FAMILY AT BEDSIDE, NAD NOTED, WILL CONTINUE TO MONITOR.
[2016-10-11 08:00] VITALS: BP 155/103
--- NOTE | 2016-10-11 10:12 | NUR ---
BP MEDS GIVEN, NAD NOTED. LYING ON LEFT SIDE RESTING QUIETLY. DENIES PAIN. NO CONCERNS VOICED AT THIS TIME.
[2016-10-11 12:00] VITALS: BP 169/92
[2016-10-11 13:38] VITALS: Ht 190.5 cm; Wt 126.5 kg
--- NOTE | 2016-10-11 14:57 | NUR ---
BP STILL HIGH, CATAPRES GIVEN WITH A SIP OF WATER. NAD NOTED, FAMILY AT BEDSIDE, CALL LIGHT IN REACH, WILL CONTINUE TO MONITOR.
[2016-10-11 15:51] VITALS: BP 179/97
--- NOTE | 2016-10-11 17:38 | NUR ---
PRE-OP MEDS GIVEN, IV NOT PATENT, WILL NOTIFY OR.
--- NOTE | 2016-10-11 18:47 | NUR ---
SUCCESSFULLY STARTED IV TO RIGHT THUMB WITH 22G X3 ATTEMPTS. DRESSING AND SWAB CAP INTACT. INITIALED AND DATED. PT TOLERATED WELL. NS CONNECTED FOR SURGERY PRE-OP. NAD NOTED. NO OTHER CONCERS VOICED AT THIS TIME. CALL LIGHT IN REACH. WILL CONTINUE TO MONITOR.
[2016-10-11 19:00] VITALS: BP 178/80
--- NOTE | 2016-10-11 19:30 | NUR ---
PT IN BED WITH HOB UP FOR COMFORT. WATCHING TV. FAMILY AT BEDSIDE. NPO. 22 GAUGE RT THUMB. FSBS ACHS. LEFT ARM RESERVE. UP ADLIB. NO O2. SURGERY TONIGHT ON LT ARM FISTULA. BED IN LOWEST POSITION AND CALL LIGHT WITHIN REACH.
--- NOTE | 2016-10-11 20:28 | NUR ---
BODY MAKER AT BEDSIDE TO OBTAIN VITALS, CALL LIGHT IN REACH. WILL CONTINUE WITH PLAN OF CARE.
--- NOTE | 2016-10-11 20:40 | NUR ---
GONE TO SURGERY BY BED.
--- NOTE | 2016-10-12 00:51 | NUR ---
BACK FROM [place]. PT AWAKE AND ALERT & OREINTED.
[2016-10-12 00:57] VITALS: BP 130/64
--- NOTE | 2016-10-12 01:08 | NUR ---
2340/FSBS WAS 505, NOTIFIED PAY PER CLICK STRATEGIST, REG INSULIN 20 UNITS IV GIVEN. 0010/FSBS WAS 488, NOTIFIED PAY PER CLICK STRATEGIST, REG INSULIN 25 UNITS IV GIVEN. 0030/FSBS WAS 503, NOTIFIED PAY PER CLICK STRATEGIST. NOTIFIED DR DUMONT. ORDERS FOR RENAL DOCTOR TO BE NOTIFIED AFTER TRANSFERED TO FLOOR FOR GLUCOSE TREATMENT. 0100/FSBS STILL ELEVATED AFTER TRANSFERRED TO FLOOR. CHARGE NURSE IS NOTIFYING RENAL DOC FOR FURTHER ORDERS.
--- NOTE | 2016-10-12 03:36 | NUR ---
PT IN BED WITH HOB UP FOR COMFORT. WATCHING TV. FAMILY AT BEDSIDE. BED IN LOWEST POSITION AND CALL LIGHT WITHIN REACH.
[2016-10-12 04:00] VITALS: BP 133/69
--- NOTE | 2016-10-12 06:55 | NUR ---
RECEIVED TELEPHONE CALL FROM REGARDING PT STATUS CURRENTLY. DR. DUMONT STATES, "HAVE PT BE ON CLEAR LIQUID DIET FOR BREAKFAST UNTIL HE DIALZES, THEN GO NPO." WILL PUT ORDERS IN GIVEN AND CONTINUE TO MONITOR.
--- NOTE | 2016-10-12 07:53 | NUR ---
AM ROUNDING- RECEIVED REPORT FROM METAL EXTRUSION SUPERVISOR NURSE MADISYN. PT IS CURRENTLY LAYING IN BED ON LEFT SIDE WITH EYES CLOSED RESTING. GUEST AT BEDSIDE. PT DID AWAKEN TO ASK WHEN HE WOULD DIALYZE TODAY. I INFORMED PT I WAS NOT SURE YET. ON ROOM AIR. NO MONITOR. IV SEEN TO RIGHT THUMB WITH HEPARIN DRIP RUNNING AT 12CC (12,000 UNITS) ORDERED PER ONE TIME DOSE FROM METAL EXTRUSION SUPERVISOR. RESERVE LEFT ARM FOR AVF, DRESSING SEEN OVER SITE. NO NEED AT CURRENT TIME. WILL CONTINUE TO MONITOR AND CONTINUE WITH PLAN OF CARE.
[2016-10-12 08:29] VITALS: BP 122/63
[2016-10-12 09:07] LABS: BASOPHILS 0.2 % (0-2); EOSINOPHILS 0 % (0-7); HEMATOCRIT 29.4 % (42.0-54.0); HEMOGLOBIN 9.9 g/dL (13.5-17.5); IMMATURE GRANULOCYTES 0.8 % (0-5); LYMPHOCYTES 9.3 % (15-50); MCH 31.5 pg (26.0-34.0); MCHC 33.7 g/dL (31.0-37.0); MEAN PLATELET VOLUME 10.3 fL (7.4-10.4); NEUTROPHILS 81.7 % (40-80); PLATELET COUNT 169 10x3/uL (130-400); RBC 3.14 10x6/uL (4.20-6.10); RDW 15.2 % (11.5-14.5)
[2016-10-12 09:19] LABS: INR 0.97 (0.85-1.17); PROTIME 12.8 SECONDS (11.6-15.0)
[2016-10-12 09:20] LABS: MCV 93.6 fL (80.0-100.0); WBC 10.8 10x3/uL (4.8-10.8)
[2016-10-12 09:22] LABS: CARBON DIOXIDE 17.5 mmol/L (21.0-32.0); CREATININE - SERUM 15.8 mg/dL (0.6-1.3)
[2016-10-12 09:26] LABS: ANION GAP 25.4 mmol/L (8-16); POTASSIUM - SERUM 5.9 mmol/L (3.5-5.1)
[2016-10-12 09:27] LABS: CALCIUM 6.6 mg/dL (8.5-10.1)
--- NOTE | 2016-10-12 10:57 | NUR ---
Patient Name: ROCCO DURAN Admission Status: Urgent Accout number: [id number] Admission Date: 10-10-2016 : 1980 Admission Diagnosis: Attending: ROGER Current LOS: 2 Anticipated DC Date: Planned Disposition: Home Primary Insurance: MEDICARE A & B Discharge Planning Comments: * Is the patient Alert and Oriented? Yes 0 * How many steps to enter\exit or inside your home? 1 0 * PCP DR. CHELA ALTAMIRANO IN [place] 0 * [facility]acy [facility] IN [place] 0 * Preadmission Environment Home with Family 0 * ADLs Partial Dependent 0 * Partial ADLs (Assistance needed) Bathing Dressing Medication Management 0 * Equipment Glucometer Other 0 * Other Equipment HOME HEMODIALYSIS MACHINE AND SUPPLIES PROVIDED BY [facility] 0 * List name and contact numbers for known caregivers / representatives who currently or will assist patient after discharge: [place], 0 * Community resources currently utilized Other 0 * Please name any agencies selected above. HOME HEMODIALYSIS - [facility] ASSISTS WITH THIS PROCESS AT HOME 5 DAYS PER WEEK 0 * Additional services required to return to the preadmission environment? No 0 * Can the patient safely return to the preadmission environment? Yes 0 * Has this patient been hospitalized within the prior 30 days at any hospital? No 0 CM MET WITH PT AND RADHAILIANA IN ROOM TO DISCUSS DISCHARGE PLANNING AND NEEDS. PT REPORTS LIVING AT HOME DEPENDENT ON [place] WHO ASSISTS WITH BATHING NEEDED, DRESSING NEEDED, MEDICATION MANAGEMENT AND HOME HEMODIALYSIS 5 DAYS PER WEEK. PT HAS GLUCOMETER AND HOME HEMODIALYSIS MACHINE WITH SUPPLIES FROM [facility]. PT HAS NO MEDICAL EQUIPMENT PROVIDER PREFERENCE AND NO OUTSIDE SERVICES ASSISTING IN THE HOME. CM DISCUSSED AVAILABILITY OF HOME HEALTH, REHAB SERVICES AND MEDICAL EQUIPMENT. PT REPORTS NOT HAVING FAMILY OR FRIENDS TO PICK HE AND FIILIANA UP AND DENIES HAVING FINANCIAL RESOURCES TO PAY THE $375 FOR [employer] SERVICES FOR HE AND HIS FIILIANA TO GET BACK TO [place] AT DISCHARGE. PT DENIES DISCHARGE NEEDS OTHER THAN NEEDING CM TO ARRANGE [facility] MEDICAID TRANSPORTATION FOR HE AND HIS FIANCE'S TRANSPORATION HOME WHEN THE DOCTOR DOES DISCHARGE PT. [facility] MEDICAID TRANSPORTATION IS NOT AVAILABLE FOR WEEKEND SERVICES. TO ARRANGE [facility] MEDICAID TRANSPORTATION, CALL OXYGEN FURNACE OPERATOR ON WEEKDAY, . CM TO CONTINUE TO FOLLOW AND ASSIST NEEDED. Farm Equipment Mechanic Apprentice: Bubba Jordan
--- NOTE | 2016-10-12 11:29 | NUR ---
RECEIVED CALL FROM DR. BRYANT. DR. BRYANT ASKED WHEN PT WOULD BE DIALYZING TODAY. I INFORMED DR. BRYANT THAT I AM ABOUT TO CALL AND SEE WITH DIALYSIS. DR. BRYANT ASKED ABOUT PTS LEFT ARM AVF, I INFORMED DR. BRYANT THAT UPON DAILY SHIFT ASSESSMENT + BRUIT WAS HEARD AND + THRILL IS FELT. DR. BRYANT STATES TO LET HIM KNOW WHEN PT GOES TO DIALYSIS. I INFORMED DR. BRYANT THAT I WOULD. 1130- ILYA SHAW NP ON UNIT NOW. ASKED ILYA SHAW NP WHEN PT WOULD DIALYZE BECAUSE DR. BRYANT AND PT WERE WANTING TO KNOW. ILYA SHAW NP STATES SHE WOULD LET ME KNOW. WILL CONTINUE TO MONITOR.
--- NOTE | 2016-10-12 11:52 | NUR ---
ILYA SHAW NP STATES THAT PT WILL DIALYZE AFTER ANOTHER PT GETS DONE DIALYZING. I INFORMED ILYA SHAW NP THAT I WOULD LET DR. BRYANT KNOW. ILYA SHAW NP STATES TO ASK DR. BRYANT WHEN SPEAKING TO HIM IF IT IS OKAY TO START PT ON COUMADIN TAB. WILL DO ORDERED AND CONTINUE TO MONITOR.
[2016-10-12 11:56] VITALS: BP 147/80
--- NOTE | 2016-10-12 12:04 | NUR ---
CALLED PHARMACY TO SEE IF CALCIUM GLUCONATE IS COMPATIBLE WITH HEPARIN DRIP, WALLY FROM PHARMACY STATES YES THEY ARE.
--- NOTE | 2016-10-12 12:38 | NUR ---
ILYA SHAW NP ON UNIT. AWARE OF PTS CALCIUM LEVEL TODAY (6.6).
--- NOTE | 2016-10-12 14:02 | NUR ---
RECEIVED CALL FROM DR. BRYANT. INFORMED DR. BRYANT THAT PT WILL BE DIALYZING SOON. ALSO RELAYED WHAT ILYA SHAW WITH RENAL WANTED ME TO TELL DR. BRYANT. DR. BRYANT STATES IT IS A GOOD IDEA FOR PT TO BE ON COUMADIN LONG RENAL CONROLS THAT. I INFORMED DR. BRYANT THAT I WOULD CALL HIM WHEN PT DIALYZES. WILL CONTINUE TO MONITOR.
--- NOTE | 2016-10-12 14:57 | NUR ---
PT TO DIALYSIS VIA BED. INFORMED DIALYSIS NURSE TO LET ME KNOW WHEN THEY START DIALYZING PT SO I CAN CALL DR. BRYANT AND LET HIM KNOW. DIALYSIS NURSE AGREES.
--- NOTE | 2016-10-12 15:20 | NUR ---
KATIE FROM DIALYSIS CALLED TO INFORM ME THAT SHE GOT PT ON FIRST STICK, HAD SOME CLOTS ON SECOND STICK, AND WAS ABLE TO GET PT WITH NO PROBLEM ON THIRD STICK. CALLED DR. MENDES OFFICE TO INFORM HIM OF THIS. WILL AWAIT CALLBACK AND CONTINUE TO MONITOR.
--- NOTE | 2016-10-12 15:54 | NUR ---
RECEIVED CALLBACK FROM DR. BRYANT. INFORMED HIM THAT DIALYSIS NURSE STATES THAT SHE GOT PT ON FIRST STICK, RAN INTO A FEW CLOTS ON SECOND STICK, AND GOT PT ON THIRD STICK WITH NO DIFFICULTY. DR. BRYANT STATES TO GO AHEAD AND FEED PT. WHEN ASKED DR. BRYANT IF PT NEEDS TO BE ON RENAL/ADA DIET DR. BRYANT STATES "YES".
--- NOTE | 2016-10-12 17:54 | NUR ---
PT IS IN DIALYSIS. AWAITING REPORT FROM DIALYSIS NURSE.
--- NOTE | 2016-10-12 18:48 | NUR ---
PT BACK FROM DIALYSIS VIA BED.
[2016-10-12 19:00] VITALS: BP 137/62
--- NOTE | 2016-10-12 19:25 | NUR ---
RECEIVED REPORT, PT JUST RECEIVED BACK FROM DIALYSIS, DENIES ANY NEEDS AT THIS TIME, FAMILY AT BEDSIDE, BED IS LOW, SR2, CALL LIGHT IN REACH, WILL CONTINUE PLAN OF CARE
--- NOTE | 2016-10-12 23:40 | NUR ---
SCRAP METAL PROCESSING WORKER AT BEDSIDE TO OBTAIN VITALS, CALL LIGHT IN REACH. WILL CONTINUE WITH PLAN OF CARE.
[2016-10-13] VITALS: BP 159/72
--- NOTE | 2016-10-13 02:24 | NUR ---
ASSESSMENT COMPLETE,SEE FLOWSHEET, ASKING FOR RICHARDCO, BED IS LOW, SRX2, CALL LIGHT IN REACH, AT BEDSIDE, WILL CONTINUE PLAN OF CARE
[2016-10-13 04:00] VITALS: BP 144/59
[2016-10-13 05:41] LABS: BASOPHILS 0.2 % (0-2); EOSINOPHILS 3.8 % (0-7); HEMATOCRIT 29.2 % (42.0-54.0); HEMOGLOBIN 9.6 g/dL (13.5-17.5); LYMPHOCYTES 20.6 % (15-50); MCHC 32.9 g/dL (31.0-37.0); MCV 94.2 fL (80.0-100.0); MEAN PLATELET VOLUME 10.6 fL (7.4-10.4); MONOCYTES 11.9 % (2-11); NEUTROPHILS 62.5 % (40-80); PLATELET COUNT 138 10x3/uL (130-400); RDW 15.7 % (11.5-14.5)
[2016-10-13 05:47] LABS: APTT 39.1 SECONDS (22.8-39.4); INR 0.99 (0.85-1.17); PROTIME 12.9 SECONDS (11.6-15.0)
[2016-10-13 05:50] LABS: WBC 4.8 10x3/uL (4.8-10.8)
[2016-10-13 06:06] LABS: CARBON DIOXIDE 21.8 mmol/L (21.0-32.0); CREATININE - SERUM 14.6 mg/dL (0.6-1.3)
[2016-10-13 06:08] LABS: POTASSIUM - SERUM 4.8 mmol/L (3.5-5.1)
[2016-10-13 06:09] LABS: CALCIUM 6.4 mg/dL (8.5-10.1)
--- NOTE | 2016-10-13 07:46 | NUR ---
AM ROUNDING- RECEIVED REPORT FROM PERSONAL SUPPORT WORKER NURSE JAVAN. PT IS CURRENTY LAYING IN BED ON BACK WITH EYES OPEN RESTING. IS AT BEDSIDE. ON ROOM AIR. NO MONITOR. IV SEEN TO RIGHT THUMB WITH HEPARIN DRIP RUNNING AT 12CC (PER ORDER). RESERVE LEFT ARM FOR AVF. WILL AWAIT ILYA SHAW NP TO GET TO UNIT TO SEE ABOUT HEPARIN DRIP BEING CONTINUED OR PLACING PT ON HEPARIN PROTOCOL SINCE BEING ON DRIP. WILL CONTINUE TO MONITOR AND CONTINUE WITH PLAN OF CARE.
[2016-10-13 08:44] VITALS: BP 140/72
[2016-10-13 12:00] VITALS: BP 139/65
[2016-10-13 12:03] LABS: ALBUMIN 3.3 g/dL (3.4-5.0); BILIRUBIN - DIRECT 0.07 mg/dL (0.00-0.30); BILIRUBIN - INDIRECT 0.2 mg/dL (0.00-1.00); BILIRUBIN - TOTAL 0.27 mg/dL (0.2-1.3); PHOSPHOROUS 6.9 mg/dL (2.5-4.9); PROTEIN - SERUM 7.4 g/dL (6.4-8.2)
--- NOTE | 2016-10-13 12:04 | NUR ---
PT TO DIALYSIS VIA BED WITH LUNCH TRAY IN HAND.
[2016-10-13 13:03] LABS: APTT 41.1 SECONDS (22.8-39.4); INR 0.94 (0.85-1.17); PROTIME 12.4 SECONDS (11.6-15.0)
--- NOTE | 2016-10-13 13:36 | NUR ---
Nutrition follow-up: Diet: Renal ADA consistent CHO PO intake 100% of some meals Labs reviewed Pt in dialysis at this time RDN following.
--- NOTE | 2016-10-13 14:27 | NUR ---
PT BACK FROM DIALYSIS VIA BED.
--- NOTE | 2016-10-13 16:44 | NUR ---
SAUL RN CAME TO INFORM ME THAT JJ GIL TOOK PTS BLOOD PRESSURE IT AND IT WAS 83/33. WENT TO CHECK ON PT. ASKED PT HOW HE FEELS, PT REPLIED "TIRED". CHECKED PTS BLOOD PRESSURE IN RIGHT ARM, BLOOD PRESSURE IS 112/57. WILL CONTINUE TO MONITOR.
--- NOTE | 2016-10-13 17:55 | NUR ---
PT IS CURRENTLY LAYING IN BED ON RIGHT SIDE WITH EYES CLOSED RESTING. IS AT BEDSIDE. NO NEED AT CURRENT TIME. WILL CONTINUE TO MONITOR.
[2016-10-13 18:24] VITALS: BP 112/57
[2016-10-13 18:50] LABS: APTT 36.6 SECONDS (22.8-39.4); INR 0.93 (0.85-1.17); PROTIME 12.3 SECONDS (11.6-15.0)
[2016-10-13 19:00] VITALS: BP 114/43
--- NOTE | 2016-10-13 22:32 | NUR ---
NURSE ROUNDS 21:30 - PT LYING IN BED, AWAKE, ALERT, ORIENTED, C/O GREAT ABDOMINAL PAIN, REQUESTING HIS PRN NORCO. FAMILY AT BEDSIDE. PTS ABDOMEN IS VERY DISTENDED WITH PT C/O MAIN PAIN IN RUQ AND LUQ, WITH GENERAL SORENESS THROUGHOUT. I SPOKE WITH ANJU ARORA CORE SHAPER SIDES FOR RENAL. SHE WANTS TO R/O PERF BOWEL SO A CT OF THE ABDOMEN WITHOUT CONTRAST WILL BE ORDERED, AND DEPENDING ON THE RESULTS OF THAT, SOAP SUDS ENEMA MAY BE GIVEN. WILL MONITOR PT CLOSELY.
[2016-10-14 02:52] LABS: BASOPHILS 0.6 % (0-2); EOSINOPHILS 9.4 % (0-7); HEMATOCRIT 28.9 % (42.0-54.0); HEMOGLOBIN 9.6 g/dL (13.5-17.5); IMMATURE GRANULOCYTES 1.2 % (0-5); LYMPHOCYTES 20.7 % (15-50); MCH 31.5 pg (26.0-34.0); MCHC 33.2 g/dL (31.0-37.0); MCV 94.8 fL (80.0-100.0); MEAN PLATELET VOLUME 10.4 fL (7.4-10.4); MONOCYTES 17.1 % (2-11); PLATELET COUNT 142 10x3/uL (130-400); RBC 3.05 10x6/uL (4.20-6.10); RDW 15.7 % (11.5-14.5); WBC 5.1 10x3/uL (4.8-10.8)
[2016-10-14 03:04] LABS: CREATININE - SERUM 3.7 mg/dL (0.6-1.3)
[2016-10-14 03:07] LABS: APTT 38.5 SECONDS (22.8-39.4); INR 0.92 (0.85-1.17); PROTIME 12.2 SECONDS (11.6-15.0)
[2016-10-14 03:15] LABS: ANION GAP 24.1 mmol/L (8-16); POTASSIUM - SERUM 4.1 mmol/L (3.5-5.1)
[2016-10-14 04:00] VITALS: BP 128/62
--- NOTE | 2016-10-14 05:27 | NUR ---
SOAP SUDS ENEMA GIVEN AFTER CT ABDOMEN WAS CLEAR OF BOWEL OBSTRUCTION. ENEMA PRODUCED MINIMAL RESULTS. CONTINUE TO MONITOR CLOSELY.
[2016-10-14 08:00] VITALS: BP 118/69
--- NOTE | 2016-10-14 08:02 | NUR ---
AM ROUNDING DONE WITH PATIENT COMPLAING OF "STOMACH DISCOMFORT". YOU WALK INTO THE ROOM THERE IS A FOUL SMELL OF GAS PRESENT. IN REPORT, PATIENT HAD A SOAP SUDS ENEMA. HEPARIN DRIP AT 12 CC/HR INFUSING TO RIGHT THUMB. ON ROOM AIR. LEFT AVF SEEN. FOR DIALYSIS TODAY PER REPORT.
--- NOTE | 2016-10-14 10:17 | NUR ---
PER PHAMRACY, HEPARIN DRIP AND CALCIUM CHLORIDE ARE COMPATABLE.
[2016-10-14 10:32] LABS: APTT 39.8 SECONDS (22.8-39.4); PROTIME 13.1 SECONDS (11.6-15.0)
[2016-10-14 12:00] VITALS: BP 139/84
--- NOTE | 2016-10-14 15:12 | NUR ---
TO DIALYSIS VIA BED ALONG WITH HEPARIN DRIP.
--- NOTE | 2016-10-14 17:37 | NUR ---
PATIENT IS STILL IN DIALYSIS.
[2016-10-14 19:07] LABS: INR 1.11 (0.85-1.17); PROTIME 14.1 SECONDS (11.6-15.0)
[2016-10-14 19:08] LABS: APTT 67.3 SECONDS (22.8-39.4)
[2016-10-14 20:00] VITALS: BP 147/66
--- NOTE | 2016-10-14 20:13 | NUR ---
PT RECEIVED BACK FROM DIALYSIS, PT DENIES ANY NEEDS, BED IS LOW, SRX2,CALL LIGHT IN REACH, FAMILY AT BEDSIDE, WILL CONTINUE PLAN OF CARE
--- NOTE | 2016-10-15 00:26 | NUR ---
ASSESSMENT COMPLETE, SEE FLOWSHEET, PT IS SLEEPING, FAMILY AT BEDSIDE, BED IS LOW, SRX2, CALL LIGHT IN REACH, WILL CONTINUE PLAN OF CARE
[2016-10-15 02:38] LABS: BASOPHILS 0.5 % (0-2); EOSINOPHILS 11.3 % (0-7); HEMATOCRIT 29.5 % (42.0-54.0); HEMOGLOBIN 9.7 g/dL (13.5-17.5); IMMATURE GRANULOCYTES 1.1 % (0-5); LYMPHOCYTES 16.1 % (15-50); MCH 31.7 pg (26.0-34.0); MCHC 32.9 g/dL (31.0-37.0); MCV 96.4 fL (80.0-100.0); MEAN PLATELET VOLUME 10.6 fL (7.4-10.4); MONOCYTES 14.8 % (2-11); NEUTROPHILS 56.2 % (40-80); PLATELET COUNT 134 10x3/uL (130-400); RBC 3.06 10x6/uL (4.20-6.10); RDW 15.4 % (11.5-14.5); WBC 5.5 10x3/uL (4.8-10.8)
[2016-10-15 02:44] LABS: APTT 27.5 SECONDS (22.8-39.4); INR 1.39 (0.85-1.17)
[2016-10-15 02:50] LABS: CARBON DIOXIDE 25.9 mmol/L (21.0-32.0); POTASSIUM - SERUM 4.9 mmol/L (3.5-5.1)
[2016-10-15 02:51] LABS: CALCIUM 6.9 mg/dL (8.5-10.1)
--- NOTE | 2016-10-15 03:22 | NUR ---
BLOOD [id number], PAGED ANJU CRANE,
--- NOTE | 2016-10-15 03:28 | NUR ---
ANJU CALLED BACK WAS TOLD TO GIVE 15UNITS OF HUMLIN R AND RECHECK BLOODSUGAR IN 2HRS
[2016-10-15 04:00] VITALS: BP 150/57
--- NOTE | 2016-10-15 07:10 | NUR ---
RECEIVED REPORT. ASSUMED CARE OF PATEINT. PATIENT RESTING IN BED WITH EYES CLOSED. EASILY AROUSED. PATIENT COMPLAIN OF ABD PAIN AND STATES HE HAS NOT HAD A PAIN PILL IN "AWHILE". INFORMED PATIENT THAT HIS PAIN MEDICATION IS PRN AND IF PAIN MEDICATION IS AVAILABLE, THIS LAMINA SEARCHER WOULD BRING IT TO HIM. PATIENT VERBALIZED HIS UNDERSTANDING. HEPARIN DRIP INFUSING AT 12 UNITS/HR. REVIEWED MD PROGRESS NOTES AND DOCUMENTATION PROVIDED ABOUT COUMADIN AND HEPARIN ADMINISTRATION. CALL LIGHT WITHIN REACH. NO DISTRESS.
[2016-10-15 08:00] VITALS: BP 144/77
--- NOTE | 2016-10-15 09:51 | NUR ---
RECEIVED VERBAL ORDER FROM VINNY RENE TO STOP HEPARIN DRIP WHILE PATIENT RECIEVES IV CALCIUM INFUSED OVER ONE HOUR. ALSO RECEIVED VERBAL ORDERS FOR PATIENT TO AMBULATE IN HALLWAYS AFTER RECEIVING CALCIUM.
[2016-10-15 10:33] LABS: APTT 49.4 SECONDS (22.8-39.4); INR 1.9 (0.85-1.17); PROTIME 21.8 SECONDS (11.6-15.0)
[2016-10-15 11:35] VITALS: BP 143/86
--- NOTE | 2016-10-15 11:45 | NUR ---
PATIENT UP AMBULATING IN ROOM AND ON UNIT. AMBULATING WELL. NO DISTRESS.
--- NOTE | 2016-10-15 11:46 | NUR ---
FSBS 174. 2 UNITS REGULAR INSULIN ADMINISTERED PER SLIDING SCALE. NO DISTRESS.
--- NOTE | 2016-10-15 15:01 | NUR ---
RESTING WITH EYES OPEN, ATTENTION TOWARD TELEVISION. FEMALE VISITOR AT BEDSIDE. DENIES NEEDS AT THIS TIME. NO DISTRESS.
[2016-10-15 15:43] VITALS: BP 148/76
--- NOTE | 2016-10-15 16:00 | NUR ---
22 GAUGE IV PLACED TO RIGHT LATERAL HAND X 1 STICK BY DAVID MARIE. GOOD BLOOD RETURN, EASY FLUSH. TOLERATED IV PLACEMENT WELL. TAPED, DATED AND SECURED. 22 GAUGE TO THUMB REMAINS PATENT BUT PATIENT HAS LIMITED ACCESS AND IV IN THUMB WAS NOT IN BEST OF AREAS. RIGHT THUMB IV SITE PATENT BUT NOT UTILIZED AT THIS TIME.
--- NOTE | 2016-10-15 16:43 | NUR ---
FSBS 355. 8 UNITS REGULAR INSULIN ADMINISTERED PER SLIDING SCALE AT THIS TIME.
[2016-10-15 19:02] LABS: APTT 57.6 SECONDS (22.8-39.4)
[2016-10-15 19:15] LABS: INR 2.42 (0.85-1.17); PROTIME 26.5 SECONDS (11.6-15.0)
--- NOTE | 2016-10-15 19:45 | NUR ---
RECEIVED REPORT, WILL ASSUME CARE OF PT, PT SLEEPING, FAMILY AT BEDSIDE, BED IS LOW, SRX2, CALL LIGHT IN REACH, WILL CONTINUE PLAN OF CARE
[2016-10-15 20:00] VITALS: BP 157/71
--- NOTE | 2016-10-15 21:23 | NUR ---
ANLNARDUTZ-772-VDIM 6 UNITS HUMULIN REG AND 16 UNITS LEVEMIR, ASK FOR PAIN MEDS, GAVE NORCO-10 ORDER, WILL MONITOR
--- NOTE | 2016-10-15 21:50 | NUR ---
PAGED ANJU SOLORZANO TO SEE IF HEPRIN NEED TO CONTINUE OR D/C
--- NOTE | 2016-10-15 22:10 | NUR ---
ANJU ARORA CALLED BACK SAID D/C HEPRIN DRIP, ORDER 30MG LOVENOX DAILY, GAVE ORDER TO KEKE, WILL GIVE WHEN SHE PULLS IT
--- NOTE | 2016-10-16 04:08 | NUR ---
ASSESSMENT COMPLETE, SEE FLOWSHEET, PT SLEEPING, BED IS LOW, SRX2, CALL LIGHT IN REACH, FAMILY AT BEDSIDE, WILL CONTINUE PLAN OF CARE
[2016-10-16 04:58] LABS: BASOPHILS 0.8 % (0-2); EOSINOPHILS 13.8 % (0-7); HEMATOCRIT 27.3 % (42.0-54.0); IMMATURE GRANULOCYTES 1.6 % (0-5); LYMPHOCYTES 23.6 % (15-50); MCH 31.7 pg (26.0-34.0); MCV 96.1 fL (80.0-100.0); MEAN PLATELET VOLUME 10.2 fL (7.4-10.4); MONOCYTES 14.8 % (2-11); NEUTROPHILS 45.4 % (40-80); PLATELET COUNT 139 10x3/uL (130-400); RBC 2.84 10x6/uL (4.20-6.10); RDW 15.5 % (11.5-14.5)
[2016-10-16 05:12] LABS: INR 3.13 (0.85-1.17); PROTIME 32.5 SECONDS (11.6-15.0)
[2016-10-16 05:19] LABS: ANION GAP 18.1 mmol/L (8-16); CARBON DIOXIDE 26.3 mmol/L (21.0-32.0); CREATININE - SERUM 11.7 mg/dL (0.6-1.3); POTASSIUM - SERUM 4.4 mmol/L (3.5-5.1)
[2016-10-16] MEDS ORDERED: COUMADIN7.5 MG PO (07:49)
--- NOTE | 2016-10-16 08:30 | NUR ---
INTRODUCED MYSELF TO PT PRIMARY RN FOR TODAYS SHIFT. PT STATES "IM GOING HOME AFTER DIALYSIS" DISCHARGE ORDERS ARE IN THE COMPUTER. SHIFT ASSESSMENT COMPLETED. MORNING MEDICATIONS GIVEN AND PT SWALLOWED WITHOUT ANY DIFFICULTIES. PT C/O HIS ABDOMEN HURTING AND REQUESTED PRN PAIN MEDICATION AND WAS PROVIDED WITH IT. PT HAS 2 PIV TO THE L.HAND THAT ARE CDI AND SWAB CAPS IN USE THAT WILL BE D/C PRIOR TO HIM LEAVING. DISCHARGE TEACHING PROVIDED AND PAPERS SIGNED AND OBTAINED IN CHART. PT IS STARTING ON COUMADIN AND VERIFIES UNDERSTANDING AND SCRIPT WAS E-SCRIBED TO HIS PHARMACY. PT WAITING TO HAVE DIALYSIS SO HE CAN LEAVE. CL IN REACH, BED IN LOWEST, SIDE RAILS X2. WILL CPOC.
[2016-10-16 08:40] VITALS: BP 161/87
--- NOTE | 2016-10-16 09:10 | NUR ---
PT GOING DOWN TO DIALYSIS AT THIS TIME AND DENIES ANY CURRENT NEEDS. WILL CPOC.
--- NOTE | 2016-10-16 10:29 | NUR ---
Patient Name: ROCCO DURAN Encounter No: [id number] : 1980 Primary Insurance: MEDICARE A & B Anticipated DC Date: 10-16-2016 Planned Disposition: Home DCP follow-up note: CM RECEIVED DISCHARGE ORDER, MET WITH PT AND FIANCE AT N[facility]SES [facility]ATION, BOTH HAD JUST ARRIVED BACK ON FLOOR AFTER GOING DOWNSTAIRS. PT REPORTS NEEDING SEAT BUS TO GET THEM HOME TODAY AFTER DIALYSIS, NO OTHER DISCHARGE NEEDS IDENTIFIED. IMPORTANT MESSAGE FROM MEDICARE PROVIDED AND EXPLAINED. CM CALLED [facility] ([facility] SPOKE TO DORA AT [phone]; VAN SCHEDULED FOR 1200 NOON TO REAL [employer]STATE SERVICES COORDINATOR PT AND CAREGIVER. PT NOTIFIED. ELECTRIC TRUCKER NURSE NOTIFIED. NO FUTHER DISCHARGE NEEDS IDENTIFIED. Bubba Jordan, CASE MANAGEMENT
[2016-10-16 11:54] LABS: APTT 62.6 SECONDS (22.8-39.4); INR 3.31 (0.85-1.17)
--- NOTE | 2016-10-16 12:00 | NUR ---
PT RECIEVED TO ROOM FROM DIALYSIS. PT ALERT AND ORIENTED, BS IS 186. PT DENIES NEEDS AT THIS TIME, UP EATING LUNCH. PT TO RECIEVE 2 UNITS OF INSULIN PER SLIDING SCALE. WILL CTM.
--- NOTE | 2016-10-16 12:46 | NUR ---
D/C IV CATHETER WITH TIP INTACT. PT WHEELED DOWNSTAIRS TO BUS WITH FAMILY MEMEBER.
== END 2016-10-16 12:43 | disposition home or self-care (01) | DRG 252 ==
LOC: OBSVTIME → D.M2 11:57 → UNDOADMOB 11:57 → D.OPS 11:57 → OBSVTIME 11:57 → D.M2 11:57 → D.OPS 10-11 08:00 → EDSTATUS 10-11 08:00 → D.M2 10-11 23:34
PROVIDERS: Internal Medicine Nephrology; ADMIT Surgery
PROC: 05CA3ZZ Extirpation of Matter from Left Brachial Vein, Percutaneous Approach (ICD-10-PCS; 2016-10-11)
PROC: 05783ZZ Dilation of Left Axillary Vein, Percutaneous Approach (ICD-10-PCS; 2016-10-11)
PROC: 03783ZZ Dilation of Left Brachial Artery, Percutaneous Approach (ICD-10-PCS; 2016-10-11)
PROC: B51W1ZZ Fluoroscopy of Dialysis Shunt/Fistula using Low Osmolar Contrast (ICD-10-PCS; principal; 2016-10-11 14:00)
PROC: 05C83ZZ Extirpation of Matter from Left Axillary Vein, Percutaneous Approach (ICD-10-PCS; 2016-10-11 14:00)
PROC: 5A1D60Z (ICD-10-PCS; 2016-10-12)
DX: T82.858A Stenosis of other vascular prosthetic devices, implants and grafts, initial encounter (principal); N18.6 End stage renal disease; I12.0 Hypertensive chronic kidney disease with stage 5 chronic kidney disease or end stage renal disease; D68.59 Other primary thrombophilia; Y83.8 Other surgical procedures as the cause of abnormal reaction of the patient, or of later complication, without mention of misadventure at the time of the procedure; E10.22 Type 1 diabetes mellitus with diabetic chronic kidney disease; E10.65 Type 1 diabetes mellitus with hyperglycemia; Z99.2 Dependence on renal dialysis; Z79.4 Long term (current) use of insulin; F41.9 Anxiety disorder, unspecified; F32.9 Major depressive disorder, single episode, unspecified; E87.5 Hyperkalemia; E10.40 Type 1 diabetes mellitus with diabetic neuropathy, unspecified; Z91.041 Radiographic dye allergy status

== ENCOUNTER 2018-06-29 18:01 | Inpatient (IN) | payer MEDICARE ==
[~2018-06-29] VITALS: Ht 190.5 cm; Wt 121.5 kg
--- NOTE | ~2018-06-29 | OP ---
PATIENT NAME: ROCCO DURAN JR MEDICAL RECORD: [id number] :[birth year] LOCATION:D.M2 D.2112 ADMISSION DATE:06/29/18 SURGEON: JITENDRA DELVALLE MD DATE OF OPERATION: 07/07/2018 PREOPERATIVE DIAGNOSIS: History of Christopher's gangrene. POSTOPERATIVE DIAGNOSIS: History of Christopher's gangrene. PROCEDURE: Packing change. SURGEON: Jitendra Delvalle MD RECLAMATION KETTLE TENDER: None. BLOOD LOSS: Zero. ANESTHESIA: IV sedation. OPERATIVE COURSE: The patient was conveyed to the operating room electively on 07/07/2018. He is having this procedure done in the operating room under sedation as it is very painful for his wound to be repacked at the bedside. The old packing was removed. I then sterilely wiped away some mucus type material within the open portion of the wound. I then repacked the wound with a Kerlix that was soaked in normal saline. A sterile dressing was applied. The patient was then conveyed back to his room. TRANSINT:[id number] Voice Confirmation ID: [id number] DOCUMENT ID: [id number] JITENDRA DELVALLE MD CC: [id number] DICTATION DATE: 07/07/18 1206 METAL SPRAYER MACHINED PARTS: 07/07/18 1214 ADM IN [facility] [address] [place] [address]
[~2018-06-29 18:01] MED LIST changes: +COUMADIN7.5 MG PO
[2018-06-29] MEDS ORDERED: BENICAR5 MG PO (18:14)
[2018-06-29] MEDS ORDERED: LEVEMIR IN100 UNITS/ SC (18:16)
[2018-06-29 18:54] LABS: BASOPHILS 0.4 % (0-2); EOSINOPHILS 1.5 % (0-7); HEMATOCRIT 35.8 % (42.0-54.0); HEMOGLOBIN 11.8 g/dL (13.5-17.5); IMMATURE GRANULOCYTES 0.9 % (0-5); LYMPHOCYTES 12.9 % (15-50); MCH 32.4 pg (26.0-34.0); MCV 98.4 fL (80.0-100.0); MEAN PLATELET VOLUME 10.5 fL (7.4-10.4); MONOCYTES 12.8 % (2-11); NEUTROPHILS 71.5 % (40-80); RBC 3.64 10x6/uL (4.20-6.10); RDW 15.6 % (11.5-14.5); WBC 17.4 10x3/uL (4.8-10.8)
[2018-06-29 18:55] LABS: PLATELET COUNT 213 10x3/uL (130-400)
[2018-06-29 19:01] LABS: INR 3.62 (0.85-1.17); PROTIME 35.2 SECONDS (11.6-15.0)
[2018-06-29 19:07] LABS: ALBUMIN 2.5 g/dL (3.4-5.0); ALKALINE PHOSPHATASE 202 U/L (46-116); ALT (SGPT) 14 U/L (10-68); BILIRUBIN - TOTAL 0.56 mg/dL (0.2-1.3); CALC OSMOLALITY 286 mosm/kg (275-300); CALCIUM 8.5 mg/dL (8.5-10.1); CHLORIDE - SERUM 93 mmol/L (98-107); CREATININE - SERUM 13.2 mg/dL (0.6-1.3); GLUCOSE 130 mg/dL (74-106); POTASSIUM - SERUM 4.3 mmol/L (3.5-5.1); PROTEIN - SERUM 7.5 g/dL (6.4-8.2); SODIUM 135 mmol/L (136-145); UREA NITROGEN 55 mg/dL (7-18); eGFR NON AFRICAN AMERICAN 4 mL/min (90-120)
[2018-06-29 19:16] LABS: CKMB 0.3 U/L (0.0-3.6); CREATINE KINASE 76 UL (21-232); TROPONIN-I < 0.017 ng/mL (0.000-0.060)
[2018-06-29 19:43] VITALS: BP 128/67
[2018-06-29 20:00] VITALS: BP 134/62
[2018-06-29 21:06] VITALS: BP 124/72
[2018-06-30] VITALS (29 sets, daily range): BP systolic 98–138; BP diastolic 37–73; BMI 35.3
[2018-06-30 02:54] LABS: BASOPHILS 0.2 % (0-2); EOSINOPHILS 1.6 % (0-7); HEMATOCRIT 32.4 % (42.0-54.0); HEMOGLOBIN 10.5 g/dL (13.5-17.5); IMMATURE GRANULOCYTES 0.6 % (0-5); LYMPHOCYTES 10.8 % (15-50); MCHC 32.4 g/dL (31.0-37.0); MCV 98.8 fL (80.0-100.0); MEAN PLATELET VOLUME 10.3 fL (7.4-10.4); MONOCYTES 16.8 % (2-11); PLATELET COUNT 206 10x3/uL (130-400); RBC 3.28 10x6/uL (4.20-6.10); RDW 15.4 % (11.5-14.5); WBC 15.8 10x3/uL (4.8-10.8)
[2018-06-30 03:10] LABS: ALBUMIN 2.1 g/dL (3.4-5.0); ALKALINE PHOSPHATASE 181 U/L (46-116); BILIRUBIN - TOTAL 0.41 mg/dL (0.2-1.3); CALCIUM 8.5 mg/dL (8.5-10.1); CARBON DIOXIDE 25.8 mmol/L (21.0-32.0); CHLORIDE - SERUM 93 mmol/L (98-107); CREATININE - SERUM 13.8 mg/dL (0.6-1.3); MAGNESIUM - SERUM 1.9 mg/dL (1.8-2.4); PHOSPHOROUS 5.4 mg/dL (2.5-4.9); POTASSIUM - SERUM 3.9 mmol/L (3.5-5.1); PROTEIN - SERUM 7.2 g/dL (6.4-8.2); SODIUM 133 mmol/L (136-145); UREA NITROGEN 61 mg/dL (7-18); eGFR NON AFRICAN AMERICAN 4 mL/min (90-120)
[2018-06-30 03:11] LABS: ALT (SGPT) 8 U/L (10-68); CALC OSMOLALITY 289 mosm/kg (275-300); GLUCOSE 218 mg/dL (74-106); TROPONIN-I < 0.017 ng/mL (0.000-0.060)
--- NOTE | 2018-06-30 08:51 | OP ---
PATIENT NAME: ROCCO DURAN JR MEDICAL RECORD: [id number] :[birth year] LOCATION:[facility] D.2305 ADMISSION DATE:06/29/18 SURGEON: RUTH MERRITT MD DATE OF OPERATION: 06/29/2018 CO-SURGEONS: Ruth Bahena MD and Ruth Merritt MD ANESTHESIA: General anesthesia by Zohaib Pleitez CRNA. 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 PROCEDURES: Cystoscopy, Pereyra catheter insertion, examination under anesthesia, incision and drainage of scrotal abscess, excision of necrotic scrotal tissue. FINDINGS: On cystoscopy, intact penile urethra. Nonobstructive prostatic lateral lobes. Tall bladder neck, which is obstructive. He has single ureteral orifices bilaterally with no bladder tumors seen. In the scrotum, he had necrotic posterior scrotal skin with a foul swelling abscess. Testicles were intact. On digital rectal examination, he has a hard fixed prostate. No rectal masses or abscesses were found. CLINICAL HISTORY: This is a 38-year-old male, who lives in [place], [place]. He has diabetes mellitus type 1 since age 13 and he now has end-stage renal failure for which he gets hemodialysis. For the past 1 week, he has had severe scrotal pain. It has been growing in intensity. He went to the Emergency Room in [place] and they thought he had an epididymitis and gave him a shot of antibiotics and sent him home. Today, he complained of the scrotal pain to his dialysis nurse. They were concerned about the scrotal infection. Since there is no weekend inpatient dialysis in [place], he was sent here. When he was examined by our emergency room staff, the emergency room physician was very concerned about the development of Christopher gangrene. He had a scrotal ultrasound, which showed good blood flow to both testicles. However, the scrotal skin was edematous and there were signs of intratissue gas. He had a CT scan of the abdomen and pelvis, which confirmed this also. He is being brought emergently to the operating room for debridement of necrotic tissue. I will also be performing cystoscopy to check to be sure that there is no involvement of the penile urethra in this process. Blood and urine cultures were obtained in the Emergency Room. He has been given IV antibiotics in the Emergency Room. We are bringing him to the OR now for an examination and to remove any tissue. DESCRIPTION OF PROCEDURE: The patient was given induction of general anesthesia in supine position. He was then placed into dorsal lithotomy position and prepped and draped. I performed a cystoscopy using a 17-Tunisian cystoscope and a 30-degree lens. The patient is uncircumcised. The penile skin was quite edematous. I was able to find the urethral meatus. Looking in, there is no sign of any ischemia to the urethra. There is no injury to the urethra. Going into the prostatic urethra, he has a very tall bladder neck and the prostate. I had to deflect the scope upwards anteriorly quite a bit in order to get into the bladder. The bladder was unremarkable also. The scope was then removed. I then replaced the 16-Tunisian Pereyra catheter into the bladder and put this to bag drainage. A digital rectal examination was performed, and we noted that the prostate seems rather hard and completely fixed to the pelvis. I will obtain a serum PSA postoperatively to see if he may have issues with either prostatitis OPERATIVE REPORT [id number] ROCCO DURAN JR or prostate cancer. We then made an incision in the posterior scrotum and the median rhaphe of the scrotum. Initially, all we saw was very edematous tissue with no obvious abscess. As we headed more posteriorly, we finally encountered a large quantity of pus. Wound culture swabs were obtained from this pus abscess cavity. The dartos fascia and the scrotal skin surrounding the abscess were very dark and necrotic. All of the tissue was excised using either Metzenbaum scissors or the Bovie. The abscess cavity and then the area of necrosis tracked up quite significantly along the left hemiscrotal wall. We opened up the hemiscrotum on both sides with blunt dissection through the median rhaphe. The testicles were examined and they were both intact. They were placed back into the hemiscrotum. On the right side, there is erythema up to the base of the bladder. We made a small incision in this area and no pus and no necrotic tissue were found. We tunneled this incision to meet up with the rest of the bulk of our excised tissue. Once we had excised all of the tissue to healthy viable appearing tissue, then the wound was irrigated out with normal saline using the Pulsavac. Kerlix soaked in 50% hydrogen peroxide was then placed into the wound as wound packing. The scrotal skin was brought down to the perineal skin with a mattress suture of 0 Prolene. This will hold the packing in the open scrotal wound. The patient was then awakened and he will be transferred to the intensive care unit. The plan is to bring him back in 2 days for a second look. If there is any more necrotic tissue at that time, then more tissue will be debrided. TRANSINT:[id number] Voice Confirmation ID: [id number] DOCUMENT ID: [id number] RUTH MERRITT MD at 0851 CC: [id number] DICTATION DATE: 06/29/182346 CONTACT CLERK: 06/30/18[address] [facility] [address] [place] [address]
[2018-07-01] VITALS (23 sets, daily range): BP systolic 115–161; BP diastolic 52–91; Ht 190.5 cm; Wt 121.5 kg
[2018-07-01 07:20] LABS: BASOPHILS 0.4 % (0-2); EOSINOPHILS 5.4 % (0-7); HEMOGLOBIN 10.2 g/dL (13.5-17.5); IMMATURE GRANULOCYTES 0.5 % (0-5); LYMPHOCYTES 18.4 % (15-50); MCH 31.7 pg (26.0-34.0); MCHC 31.9 g/dL (31.0-37.0); MCV 99.4 fL (80.0-100.0); MEAN PLATELET VOLUME 10.3 fL (7.4-10.4); MONOCYTES 13.1 % (2-11); NEUTROPHILS 62.2 % (40-80); PLATELET COUNT 237 10x3/uL (130-400); RBC 3.22 10x6/uL (4.20-6.10); RDW 15.7 % (11.5-14.5); WBC 12.7 10x3/uL (4.8-10.8)
[2018-07-01 07:47] LABS: ALBUMIN 2.1 g/dL (3.4-5.0); ANION GAP 25.6 mmol/L (8-16); BILIRUBIN - TOTAL 0.47 mg/dL (0.2-1.3); CALCIUM 8.5 mg/dL (8.5-10.1); CARBON DIOXIDE 21.6 mmol/L (21.0-32.0); CREATININE - SERUM 16.3 mg/dL (0.6-1.3); MAGNESIUM - SERUM 2.2 mg/dL (1.8-2.4); POTASSIUM - SERUM 4.2 mmol/L (3.5-5.1); PROTEIN - SERUM 7.4 g/dL (6.4-8.2)
[2018-07-01 08:04] LABS: PHOSPHOROUS 7.1 mg/dL (2.5-4.9)
--- NOTE | 2018-07-01 18:21 | MORECARE ---
CASE MANAGEMENT DISCHARGE SUMMARY PATIENT: ROCCO DURAN JR UNIT: [id number] ADM DATE: 06/29/18 AGE: 38 : [birth year] SEX: M ROOM/BED: D.2305 AUTHOR: YAMEL VIRK PHYSICIAN: REFERRING PHYSICIAN: VIJAYA DANIELLE MD DATE OF SERVICE: 07/01/18 Discharge Plan Patient Name: ROCCO DURAN [facility] [facility] 1980 Planned Disposition: Anticipated Discharge Date: Discharge Date: Expected LOS: Initial Reviewer: [email or web address] Initial Review Date: 06/29/2018 Generated: 07/01/18 7:21 pm Comments DCP- Discharge Planning Updated by [email or web address]: Nelia Henson on 07/01/18 5:[address] CM ATTEMPTED TO SEE PATIENT REGARDING DISCHARGE PLANNING. HE IS CURRENTLY GETTING DIALYSIS AND SLEEPING WILL SEE PATIENT IN AM. CM WILL CONTINUE TO FOLLOW AND ASSIST WITH DISCHARGE PLANNING / NEEDS. Patient Name: ROCCO DURAN Page [id number] at 1821 All edits/amendments must be made on the electronic document DICTATION DATE: 07/01/181819 TITLE ABSTRACTOR: MITCHEL 07/01/181819 RPT#: [id number] DC DATE: STATUS: ADM IN [facility] [address] [place] [address] END OF REPORT
--- NOTE | 2018-07-01 22:23 | OP ---
PATIENT NAME: ROCCO DURAN JR MEDICAL RECORD: [id number] :[birth year] LOCATION:[facility] D.2305 ADMISSION DATE:06/29/18 SURGEON: RUTH MERRITT MD DATE OF OPERATION: 07/01/2018 SURGEON: Ruth Merritt MD ANESTHESIA: General anesthesia by Jayson Hinds CRNA DIAGNOSIS: History of Christopher's gangrene. FINDINGS: All tissues are viable. No necrotic areas are seen. PROCEDURE: Repeat scrotal exploration, change of wound packing. SPECIMENS: None. BLOOD LOSS: None. CLINICAL HISTORY: This is a 38-year-old male who was transferred from [place]. He has diabetes mellitus type 1 since age 13 and end-stage renal failure. He is on hemodialysis. He developed cellulitis of the perineum and the base of the scrotum. This eventually turned into gas gangrene. One and half days ago, we performed an excision of necrotic tissue and drainage of perineal scrotal abscess. Today, he comes to have the wound reexamined. Any further necrotic tissue will be removed. We will also change his packing. DESCRIPTION OF PROCEDURE: The patient was given induction of general anesthesia while in supine position. He was then placed into dorsal lithotomy position. The mesh panties were removed and the old packing was entirely removed. The wound was examined and it is completely clean. He was then prepped and draped. New Kerlix soaked in saline was placed into the wound cavity. We put further mesh panties back on afterwards. I will have wound care examine the patient and manage his daily dressing changes. TRANSINT:[id number] Voice Confirmation ID: [id number] DOCUMENT ID: [id number] RUTH MERRITT MD at 2223 CC: [id number] DICTATION DATE: 07/01/18 1531 METAL BUILDING ASSEMBLER: 07/01/18 1637 ADM IN [facility] [id number] [place] [address]
[2018-07-02] VITALS (24 sets, daily range): BP systolic 98–196; BP diastolic 63–110
[2018-07-02 05:22] LABS: INR 3.22 (0.85-1.17); PROTIME 32.1 SECONDS (11.6-15.0)
[2018-07-02 07:31] LABS: PSA - % FREE 4.4 % (()); PSA - FREE 0.14 ng/mL; PSA - TOTAL 3.2 ng/mL (0.0-4.0)
--- NOTE | 2018-07-02 17:16 | MORECARE ---
CASE MANAGEMENT DISCHARGE SUMMARY PATIENT: ROCCO DURAN JR UNIT: [id number] ADM DATE: 06/29/18 AGE: 38 : [birth year] SEX: M ROOM/BED: D.2305 AUTHOR: YAMEL VIRK PHYSICIAN: REFERRING PHYSICIAN: VIJAYA DANIELLE MD DATE OF SERVICE: 07/02/18 Discharge Plan Patient Name: ROCCO DURAN [facility] [facility] 1980 Planned Disposition: Home Anticipated Discharge Date: Discharge Date: Expected LOS: Initial Reviewer: [email or web address] Initial Review Date: 07/02/2018 Generated: 07/02/18 6:16 pm Comments DCP- Discharge Planning Updated by [email or web address]: Nelia Henson on 07/01/18 5:[address] CM ATTEMPTED TO SEE PATIENT REGARDING DISCHARGE PLANNING. HE IS CURRENTLY GETTING DIALYSIS AND SLEEPING WILL SEE PATIENT IN AM. CM WILL CONTINUE TO FOLLOW AND ASSIST WITH DISCHARGE PLANNING / NEEDS. Last DP export: 07/01/18 5:21 p Patient Name: ROCCO DURAN Page [id number] at 1716 All edits/amendments must be made on the electronic document DICTATION DATE: 07/02/181714 ASSURANCE OFFICER: MITCHEL 07/02/181714 RPT#: [id number] DC DATE: STATUS: ADM IN [facility] [address] [place] [address] END OF REPORT
--- NOTE | 2018-07-02 17:24 | MORECARE ---
CASE MANAGEMENT DISCHARGE SUMMARY PATIENT: ROCCO DURAN JR UNIT: [id number] ADM DATE: 06/29/18 AGE: 38 : [birth year] SEX: M ROOM/BED: D.2305 AUTHOR: YAMEL VIRK PHYSICIAN: REFERRING PHYSICIAN: VIJAYA DANIELLE MD DATE OF SERVICE: 07/02/18 Discharge Plan Patient Name: ROCCO DURAN Facility: [facility]:[place] : 1980 Planned Disposition: Home Anticipated Discharge Date: Discharge Date: Expected LOS: Initial Reviewer: [email or web address] Initial Review Date: 07/02/2018 Generated: 07/02/18 6:23 pm Comments DCP- Discharge Planning Updated by [email or web address]: Nelia Henson on 07/01/18 5:[address] CM ATTEMPTED TO SEE PATIENT REGARDING DISCHARGE PLANNING. HE IS CURRENTLY GETTING DIALYSIS AND SLEEPING WILL SEE PATIENT IN AM. CM WILL CONTINUE TO FOLLOW AND ASSIST WITH DISCHARGE PLANNING / NEEDS. DCPIA - Discharge Planning Initial Assessment Updated by [email or web address]: Nelia Henson on 07/02/18 5:17 pm * Is the patient Alert and Oriented? Yes * How many steps to enter\exit or inside your home? * PCP [facility] * Pharmacy [facility] * Preadmission Environment Home with Family * ADLs Independent * Equipment None * Other Equipment HEMO DIALYSIS MACHINE * List name and contact numbers for known caregivers / representatives who currently or will assist patient after discharge: GAY BLANDON- [phone] * Verbal permission to speak to the caregivers and representatives has been obtained from the patient. Yes * Community resources currently utilized None * Additional services required to return to the preadmission environment? No * Can the patient safely return to the preadmission environment? Yes * Has this patient been hospitalized within the prior 30 days at any hospital? No Last DP export: 07/02/18 4:16 p Patient Name: ROCCO DURAN Page [phone] at 2635 All edits/amendments must be made on the electronic document DICTATION DATE: 07/02/181722 STAGE DRIVER: MITCHEL 07/02/181722 RPT#: [id number] DC DATE: STATUS: ADM IN [facility] [address] [facility] [place] [address] END OF REPORT
--- NOTE | 2018-07-02 17:25 | OP ---
PATIENT NAME: ROCCO DURAN JR MEDICAL RECORD: [id number] :[birth year] LOCATION:[facility] D.2305 ADMISSION DATE:06/29/18 SURGEON: RUTH DELVALLE MD DATE OF OPERATION: 06/29/2018 PREOPERATIVE DIAGNOSIS: Scrotal abscess. POSTOPERATIVE DIAGNOSES: 1. Scrotal abscess. 2. Christopher gangrene. 3. Perineal abscess. PROCEDURES: 1. Scrotal exploration. 2. Scrotal debridement. 3. Drainage of perineal abscess. 4. Perineal debridement. 5. Packing of scrotum and perineum. This is a cosurgeon case. The urologist is Dr. Ruth Merritt. The general surgeon was Dr. Ruth Delvalle. ANESTHESIA: General. COMPLICATIONS: None. BLOOD LOSS: Please see the anesthesia sheet. This was a cosurgeon case. I was not involved in the patient's cystoscopy, which was performed by Dr. Merritt. I was present throughout the entire operative procedure from the beginning to the end. We feared the patient might have Christopher gangrene. This indeed is what we found intraoperatively. DESCRIPTION OF PROCEDURE: The patient was conveyed to the operating room emergently on 06/29/2018. General anesthesia was induced by the anesthesia staff. The perineum, scrotum, penis, and lower abdomen were sterilely prepped and draped. The patient was placed in the lithotomy position prior to this. Dr. Merritt performed a cystoscopy. See his operative note for the findings. An incision was accomplished in what appeared to be the median raphe, but actually a little bit to the right of the midline and the right hemiscrotum was entered and a lot of edema was identified. Through this incision, we entered the left hemiscrotum. An incision was accomplished just to the right of the penis on the scrotum. Another incision was accomplished in the median raphe between the scrotum and the anus. During the operation, we bluntly dissected up into both hemiscrotum. Most of the problem appeared to be involving the left scrotum. Purulence was identified as well as a lot of georges necrotic material. The necrotic material was excised in a piecemeal fashion. This included the skin and subcutaneous tissue as well as some necrotic adipose tissue and some of the perineal skin. The ureter could to be felt with Pereyra catheter within it and it was undamaged during the operation. We continued our sequential excision of the scrotum and perineum until we excised back to healthy bleeding tissue. We then took the pulse evacuation tribal council member and pulse evacuated the entire wound. We then placed a OPERATIVE REPORT [id number] RENEEROCCO DINAH JR Nievesx, which had been soaked in hydrogen peroxide into the wound. I then tacked down the scrotal skin to the perineal skin with a single horizontal mattress 0 Prolene in order to prevent packing from falling out. A sterile dressing was then applied. We went out and spoke to the patient's fiance and told her about his life threatening condition and that multiple operations and multiple debridements may be necessary. TRANSINT:[id number] Voice Confirmation ID: [id number] DOCUMENT ID: [id number] RUTH DELVALLE MD at 1725 CC: VIJAYA DANIELLE MD, RUTH MERRITT MD, QING CERVANTES MD and DEMETRA [id number] ROACH DICTATION DATE: 06/29/18 2348 BENCH LOOM WEAVER: 06/30/18 0257 ADM IN [facility] [address] [place] [address]
--- NOTE | 2018-07-02 17:25 | OP ---
PATIENT NAME: ROCCO DURAN JR MEDICAL RECORD: [id number] :[birth year] LOCATION:[facility] D.2305 ADMISSION DATE:06/29/18 SURGEON: RUTH DELVALLE MD DATE OF OPERATION: 07/01/2018 SHORE HAND DREDGE OR BARGE'S NOTE I was an unit assistant in a case where we removed the packing and examined the wound in a patient who has had Christopher gangrene. My involvement in the operation was minor and included inspection of the open wound. We identified no new areas of necrosis. I then assisted with repacking the wound. TRANSINT:[id number] Voice Confirmation ID: [id number] DOCUMENT ID: [id number] RUTH DELVALLE MD at 1725 CC: [id number] DICTATION DATE: 07/02/18 1057 CAREER SERVICES OFFICER: 07/02/18 1133 ADM IN [facility] [address] [place] [address]
--- NOTE | 2018-07-02 17:30 | MORECARE ---
CASE MANAGEMENT DISCHARGE SUMMARY PATIENT: ROCCO DURAN JR UNIT: [id number] ADM DATE: 06/29/18 AGE: 38 : [birth year] SEX: M ROOM/BED: D.2305 AUTHOR: SULLY,DOC PHYSICIAN: REFERRING PHYSICIAN: VIJAYA DANIELLE MD DATE OF SERVICE: 07/02/18 Discharge Plan Patient Name: ROCCO DURAN Facility: [facility]:[place] : 1980 Planned Disposition: Home Anticipated Discharge Date: Discharge Date: Expected LOS: Initial Reviewer: [email or web address] Initial Review Date: 07/02/2018 Generated: 07/02/18 6:30 pm Comments DCP- Discharge Planning Updated by [id number]: Nelia Henson on 07/02/18 4:[address] Patient Name: ROCCO DURAN Admission Status: ER Accout number: [id number] Admission Date: 06-29-2018 : 1980 Admission Diagnosis: Attending: VIJAYA DANIELLE Current LOS: 3 Anticipated DC Date: Planned Disposition: Home Primary Insurance: MEDICARE A & B Discharge Planning Comments: CM met with patient at bedside. Patient states that he lives with his kodak [place] [phone]. He plans to return to his home upon discharge. He states he will have family transport him home upon discharge. Patient states he does home hemodialysis 5 days a week. Patient did state that he may need a cane upon discharge. CM will continue to follow and assist as needed with discharge planning / needs Geothermal Heat Pump Machinist: Nelia Henson DCP- Discharge Planning Updated by [email or web address]: Nelia Henson on 07/01/18 5:[address] CM ATTEMPTED TO SEE PATIENT REGARDING DISCHARGE PLANNING. HE IS CURRENTLY GETTING DIALYSIS AND SLEEPING WILL SEE PATIENT IN AM. CM WILL CONTINUE TO FOLLOW AND ASSIST WITH DISCHARGE PLANNING / NEEDS. DCPIA - Discharge Planning Initial Assessment Updated by [email or web address]: Nelia Henson on 07/02/18 5:17 pm * Is the patient Alert and Oriented? Yes * How many steps to enter\exit or inside your home? * PCP ESTES * [facility] * Preadmission Environment Home with Family * ADLs Independent * Equipment None * Other Equipment HEMO DIALYSIS MACHINE * List name and contact numbers for known caregivers / representatives who currently or will assist patient after discharge: GAY BLANDON- [phone] * Verbal permission to speak to the caregivers and representatives has been obtained from the patient. Yes * Community resources currently utilized None * Additional services required to return to the preadmission environment? No * Can the patient safely return to the preadmission environment? Yes * Has this patient been hospitalized within the prior 30 days at any hospital? No Last DP export: 07/02/18 4:23 p Patient Name: ROCCO DURAN Page [phone] at 1730 All edits/amendments must be made on the electronic document DICTATION DATE: 07/02/181728 SECURITY SERVICES MANAGER: MITCHEL 07/02/181728 RPT#: [id number] DC DATE: STATUS: ADM IN [facility] [address] [place] [address] END OF REPORT
[2018-07-03] VITALS (13 sets, daily range): BP systolic 110–161; BP diastolic 50–80
[2018-07-03 04:30] LABS: BASOPHILS 0.6 % (0-2); EOSINOPHILS 8.4 % (0-7); HEMATOCRIT 28.4 % (42.0-54.0); HEMOGLOBIN 9.1 g/dL (13.5-17.5); IMMATURE GRANULOCYTES 1.4 % (0-5); LYMPHOCYTES 24.9 % (15-50); MCH 31.4 pg (26.0-34.0); MCV 97.9 fL (80.0-100.0); MEAN PLATELET VOLUME 9.4 fL (7.4-10.4); MONOCYTES 12.7 % (2-11); PLATELET COUNT 218 10x3/uL (130-400); RDW 15.3 % (11.5-14.5); WBC 8.1 10x3/uL (4.8-10.8)
[2018-07-03 04:50] LABS: ANION GAP 21.6 mmol/L (8-16); CALCIUM 8.7 mg/dL (8.5-10.1); CARBON DIOXIDE 23.8 mmol/L (21.0-32.0); CREATININE - SERUM 16.8 mg/dL (0.6-1.3); PHOSPHOROUS 7.3 mg/dL (2.5-4.9); POTASSIUM - SERUM 4.4 mmol/L (3.5-5.1); VANCOMYCIN - RANDOM 20.9 ug/mL (10.0-20.0)
[2018-07-04] VITALS: BP 140/67
[2018-07-04 04:00] VITALS: BP 140/67
[2018-07-04 05:36] LABS: BASOPHILS 0.4 % (0-2); EOSINOPHILS 7.6 % (0-7); HEMOGLOBIN 9.4 g/dL (13.5-17.5); IMMATURE GRANULOCYTES 3.5 % (0-5); LYMPHOCYTES 16.8 % (15-50); MCH 31.2 pg (26.0-34.0); MCHC 32.4 g/dL (31.0-37.0); MCV 96.3 fL (80.0-100.0); MEAN PLATELET VOLUME 9.5 fL (7.4-10.4); MONOCYTES 20.8 % (2-11); NEUTROPHILS 50.9 % (40-80); RBC 3.01 10x6/uL (4.20-6.10); RDW 15.1 % (11.5-14.5); WBC 8.2 10x3/uL (4.8-10.8)
[2018-07-04 05:43] LABS: PLATELET COUNT 273 10x3/uL (130-400)
[2018-07-04 05:52] LABS: ANION GAP 18.8 mmol/L (8-16); CALCIUM 8.4 mg/dL (8.5-10.1); CARBON DIOXIDE 27.4 mmol/L (21.0-32.0); CREATININE - SERUM 14.1 mg/dL (0.6-1.3); PHOSPHOROUS 6.3 mg/dL (2.5-4.9); POTASSIUM - SERUM 4.2 mmol/L (3.5-5.1); VANCOMYCIN - RANDOM 15.4 ug/mL (10.0-20.0)
[2018-07-04 05:58] LABS: INR 2.04 (0.85-1.17); PROTIME 22.4 SECONDS (11.6-15.0)
[2018-07-04 09:19] VITALS: BP 131/52
[2018-07-04 19:44] VITALS: BP 105/56
[2018-07-04 20:00] VITALS: BP 139/59
[2018-07-04 22:00] VITALS: BP 106/33
[2018-07-05 04:00] VITALS: BP 114/49
[2018-07-05 04:44] LABS: BASOPHILS 0.7 % (0-2); EOSINOPHILS 3.7 % (0-7); HEMATOCRIT 28.6 % (42.0-54.0); HEMOGLOBIN 9.3 g/dL (13.5-17.5); IMMATURE GRANULOCYTES 5.2 % (0-5); LYMPHOCYTES 17.7 % (15-50); MCH 31.2 pg (26.0-34.0); MCHC 32.5 g/dL (31.0-37.0); MEAN PLATELET VOLUME 9.6 fL (7.4-10.4); MONOCYTES 17.2 % (2-11); NEUTROPHILS 55.5 % (40-80); PLATELET COUNT 323 10x3/uL (130-400); RBC 2.98 10x6/uL (4.20-6.10); WBC 9.2 10x3/uL (4.8-10.8)
[2018-07-05 05:11] LABS: CALCIUM 8.1 mg/dL (8.5-10.1); CREATININE - SERUM 16.7 mg/dL (0.6-1.3); VANCOMYCIN - RANDOM 15.8 ug/mL (10.0-20.0)
[2018-07-05 05:17] LABS: PHOSPHOROUS 8.9 mg/dL (2.5-4.9)
[2018-07-05 05:18] LABS: ANION GAP 33.8 mmol/L (8-16); CARBON DIOXIDE 14.5 mmol/L (21.0-32.0); POTASSIUM - SERUM 6.3 mmol/L (3.5-5.1)
[2018-07-05 10:20] LABS: INR 1.78 (0.85-1.17); PROTIME 20.1 SECONDS (11.6-15.0)
[2018-07-05 17:26] VITALS: BP 167/76
[2018-07-05 17:36] VITALS: BP 166/82
[2018-07-05 21:17] VITALS: BP 126/59
[2018-07-06 01:04] VITALS: BP 119/50
[2018-07-06 03:55] VITALS: BP 146/57
[2018-07-06 05:51] LABS: INR 1.53 (0.85-1.17); PROTIME 17.8 SECONDS (11.6-15.0)
[2018-07-06 06:21] LABS: CALCIUM 8.7 mg/dL (8.5-10.1); CREATININE - SERUM 12.6 mg/dL (0.6-1.3); PHOSPHOROUS 8.1 mg/dL (2.5-4.9); VANCOMYCIN - RANDOM 21.2 ug/mL (10.0-20.0)
[2018-07-06 06:25] LABS: BASOPHILS 0.6 % (0-2); EOSINOPHILS 8.2 % (0-7); HEMATOCRIT 28.5 % (42.0-54.0); HEMOGLOBIN 9.3 g/dL (13.5-17.5); IMMATURE GRANULOCYTES 5.1 % (0-5); LYMPHOCYTES 16.6 % (15-50); MCHC 32.6 g/dL (31.0-37.0); MEAN PLATELET VOLUME 9.5 fL (7.4-10.4); MONOCYTES 19.6 % (2-11); NEUTROPHILS 49.9 % (40-80); PLATELET COUNT 323 10x3/uL (130-400); WBC 8.1 10x3/uL (4.8-10.8)
[2018-07-06 06:32] LABS: ANION GAP 21.5 mmol/L (8-16); CARBON DIOXIDE 23.9 mmol/L (21.0-32.0); POTASSIUM - SERUM 4.4 mmol/L (3.5-5.1)
[2018-07-06 07:56] VITALS: BP 151/56
[2018-07-06 13:35] VITALS: BP 134/43
--- NOTE | 2018-07-06 15:18 | OP ---
PATIENT NAME: ROCCO DURAN JR MEDICAL RECORD: [id number] :[birth year] LOCATION:D.M2 D.2112 ADMISSION DATE:06/29/18 SURGEON: RUTH MERRITT MD DATE OF OPERATION: 07/04/2018 SURGEON: Ruth Merritt MD ANESTHESIA: General anesthesia by Zohaib Pleitez CRNA. 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 PROCEDURES: 1. Transrectal ultrasound and prostate biopsy. 2. Change of wound packing. BLOOD LOSS: Minimal. SPECIMENS: Prostate biopsy cores. CLINICAL HISTORY: This is a 38-year-old male, who has type 1 diabetes mellitus since age 13. He has end-stage renal failure. He came with acute gas gangrene of the perineum and posterior scrotum. We debrided this. He has not been able to tolerate packing changes while awake as the pain is too severe. Therefore, we have to put him to sleep in order to change his wound packing. At the time of his initial surgery, on rectal examination, we noted that his prostate was rock hard. His PSA was found to be elevated at 3.2 with a 4.4% free PSA level. We will be obtaining a prostate biopsy to make sure that there is no prostate cancer. He is already on IV antibiotics on the floor and we did not give him any further IV antibiotics in the OR. DESCRIPTION OF PROCEDURE: The patient was given induction of general anesthesia. He was placed in the dorsal lithotomy position and prepped and draped. The transrectal ultrasound probe was introduced. Prostate size measurements were obtained at 13 grams. We obtained sextant biopsies with at least 3 cores from each sextant. Once all these biopsies were obtained, then we removed his old scrotal packing from his scrotal debridement wound. New 4-inch Kerlix soaked in normal saline was packed into the wound. Mesh panties were given to hold the packing in place. The patient was awakened and brought to the recovery room. TRANSINT:[id number] Voice Confirmation ID: [id number] DOCUMENT ID: [id number] RUTH MERRITT MD at 1518 CC: [id number] DICTATION DATE: 07/05/18 0944 NEW MEDIA STRATEGIST: 07/05/18 1149 ADM IN [place] [address] [place] [address]
[2018-07-06 20:33] VITALS: BP 144/64
[2018-07-06 23:55] VITALS: BP 122/46
[2018-07-07] VITALS (7 sets, daily range): BP systolic 101–157; BP diastolic 35–68
[2018-07-07 06:08] LABS: BASOPHILS 0.3 % (0-2); EOSINOPHILS 8.1 % (0-7); HEMOGLOBIN 8.8 g/dL (13.5-17.5); IMMATURE GRANULOCYTES 5.2 % (0-5); LYMPHOCYTES 19.1 % (15-50); MCH 30.9 pg (26.0-34.0); MCHC 32.6 g/dL (31.0-37.0); MCV 94.7 fL (80.0-100.0); MEAN PLATELET VOLUME 8.9 fL (7.4-10.4); NEUTROPHILS 50.3 % (40-80); PLATELET COUNT 308 10x3/uL (130-400); RBC 2.85 10x6/uL (4.20-6.10); RDW 15.1 % (11.5-14.5); WBC 7.6 10x3/uL (4.8-10.8)
[2018-07-07 06:33] LABS: ANION GAP 21.4 mmol/L (8-16); CALCIUM 8.3 mg/dL (8.5-10.1); CARBON DIOXIDE 21.8 mmol/L (21.0-32.0); CREATININE - SERUM 14.5 mg/dL (0.6-1.3); PHOSPHOROUS 8.2 mg/dL (2.5-4.9); POTASSIUM - SERUM 4.2 mmol/L (3.5-5.1)
[2018-07-08 03:55] VITALS: BP 105/34
[2018-07-08 04:39] LABS: BASOPHILS 0.3 % (0-2); EOSINOPHILS 8.1 % (0-7); HEMATOCRIT 26.4 % (42.0-54.0); HEMOGLOBIN 8.9 g/dL (13.5-17.5); IMMATURE GRANULOCYTES 3.7 % (0-5); LYMPHOCYTES 22.8 % (15-50); MCH 31.9 pg (26.0-34.0); MCHC 33.7 g/dL (31.0-37.0); MCV 94.6 fL (80.0-100.0); MEAN PLATELET VOLUME 8.7 fL (7.4-10.4); MONOCYTES 11.9 % (2-11); NEUTROPHILS 53.2 % (40-80); PLATELET COUNT 304 10x3/uL (130-400); RBC 2.79 10x6/uL (4.20-6.10); RDW 15.5 % (11.5-14.5); WBC 7.8 10x3/uL (4.8-10.8)
[2018-07-08 05:11] LABS: ALBUMIN 2.1 g/dL (3.4-5.0); ANION GAP 20.2 mmol/L (8-16); BILIRUBIN - TOTAL 0.37 mg/dL (0.2-1.3); CALCIUM 8.4 mg/dL (8.5-10.1); CARBON DIOXIDE 23.1 mmol/L (21.0-32.0); CREATININE - SERUM 16.7 mg/dL (0.6-1.3); POTASSIUM - SERUM 4.3 mmol/L (3.5-5.1); PROTEIN - SERUM 7.2 g/dL (6.4-8.2)
[2018-07-08 05:25] LABS: VANCOMYCIN - RANDOM 32.1 ug/mL (10.0-20.0)
[2018-07-08 09:11] VITALS: BP 130/62
[2018-07-08 15:13] VITALS: BP 140/76
--- NOTE | 2018-07-08 15:47 | MORECARE ---
CASE MANAGEMENT DISCHARGE SUMMARY PATIENT: ROCCO DURAN JR UNIT: [id number] ADM DATE: 06/29/18 AGE: 38 : 82 SEX: M ROOM/BED: D.2397 AUTHOR: SULLY,DOC PHYSICIAN: REFERRING PHYSICIAN: VIJAYA DANIELLE MD DATE OF SERVICE: 07/08/18 Discharge Plan Patient Name: ROCCO DURAN Facility: [facility]:[place] : 1980 Planned Disposition: Home Anticipated Discharge Date: Discharge Date: Expected LOS: Initial Reviewer: [email or web address] Initial Review Date: 07/02/2018 Generated: 07/08/18 4:47 pm Comments DCP- Discharge Planning Updated by [email or web address]: Nelia Henson on 07/02/18 4:[address] Patient Name: ROCCO DURAN Admission Status: ER Accout number: [id number] Admission Date: 06-29-2018 : 1980 Admission Diagnosis: Attending: VIJAYA DAINELLE Current LOS: 3 Anticipated DC Date: Planned Disposition: Home Primary Insurance: MEDICARE A & B Discharge Planning Comments: CM met with patient at bedside. Patient states that he lives with his kodak [place]iz[place] [phone]. He plans to return to his home upon discharge. He states he will have family transport him home upon discharge. Patient states he does home hemodialysis 5 days a week. Patient did state that he may need a cane upon discharge. CM will continue to follow and assist as needed with discharge planning / needs City Carrier: Nelia Henson DCP- Discharge Planning Updated by [email or web address]: Nelia Henson on 07/01/18 5:[address] CM ATTEMPTED TO SEE PATIENT REGARDING DISCHARGE PLANNING. HE IS CURRENTLY GETTING DIALYSIS AND SLEEPING WILL SEE PATIENT IN AM. CM WILL CONTINUE TO FOLLOW AND ASSIST WITH DISCHARGE PLANNING / NEEDS. DCPIA - Discharge Planning Initial Assessment Updated by [id number]: Nelia Henson on 07/02/18 5:17 pm * Is the patient Alert and Oriented? Yes * How many steps to enter\exit or inside your home? * PCP ESTES * [facility] * Preadmission Environment Home with Family * ADLs Independent * Equipment None * Other Equipment HEMO DIALYSIS MACHINE * List name and contact numbers for known caregivers / representatives who currently or will assist patient after discharge: GAY BLANDON- [phone] * Verbal permission to speak to the caregivers and representatives has been obtained from the patient. Yes * Community resources currently utilized None * Additional services required to return to the preadmission environment? No * Can the patient safely return to the preadmission environment? Yes * Has this patient been hospitalized within the prior 30 days at any hospital? No External Providers External Provider: [facility] Next Contact Date: 07/09/2018 Service Request Date: Service Type: Resolution: Reviewer: Comments: Last DP export: 07/02/18 4:30 p Patient Name: ROCCO DURAN Page [phone] at 1547 All edits/amendments must be made on the electronic document DICTATION DATE: 07/08/181546 SUPERVISOR FOOD CHECKERS AND CASHIERS: MITCHEL 07/08/181546 RPT#: [id number] DC DATE: STATUS: ADM IN [facility] [address] [place] [address] END OF REPORT
--- NOTE | 2018-07-08 16:30 | MORECARE ---
CASE MANAGEMENT DISCHARGE SUMMARY PATIENT: ROCCO DURAN JR UNIT: [id number] ADM DATE: 06/29/18 AGE: 38 : [birth year] SEX: M ROOM/BED: D.9710 AUTHOR: SULLY,DOC PHYSICIAN: REFERRING PHYSICIAN: VIJAYA DANIELLE MD DATE OF SERVICE: 07/08/18 Discharge Plan Patient Name: ROCCO DURAN Facility: [facility]:[place] : 1980 Planned Disposition: Home with Home Health Anticipated Discharge Date: 07/10/18 Discharge Date: Expected LOS: 11 Initial Reviewer: [email or web address] Initial Review Date: 07/02/2018 Generated: 07/08/18 5:30 pm Comments DCP- Discharge Planning Updated by [email or web address]: Nelia Henson on 07/02/18 4:[address] Patient Name: ROCCO DURAN Admission Status: ER Accout number: [id number] Admission Date: 06-29-2018 : 1980 Admission Diagnosis: Attending: VIJAYA DANIELLE Current LOS: 3 Anticipated DC Date: Planned Disposition: Home Primary Insurance: MEDICARE A & B Discharge Planning Comments: CM met with patient at bedside. Patient states that he lives with his kodak [place] [phone]. He plans to return to his home upon discharge. He states he will have family transport him home upon discharge. Patient states he does home hemodialysis 5 days a week. Patient did state that he may need a cane upon discharge. CM will continue to follow and assist as needed with discharge planning / needs Finisher Wallboard And Plasterboard: Nelia Henson DCP- Discharge Planning Updated by [id number]: Nelia Henson on 07/01/18 5:[address] CM ATTEMPTED TO SEE PATIENT REGARDING DISCHARGE PLANNING. HE IS CURRENTLY GETTING DIALYSIS AND SLEEPING WILL SEE PATIENT IN AM. CM WILL CONTINUE TO FOLLOW AND ASSIST WITH DISCHARGE PLANNING / NEEDS. DCPIA - Discharge Planning Initial Assessment Updated by [email or web address]: Nelia Henson on 07/02/18 5:17 pm * Is the patient Alert and Oriented? Yes * How many steps to enter\exit or inside your home? * PCP ESTES * [facility] * Preadmission Environment Home with Family * ADLs Independent * Equipment None * Other Equipment HEMO DIALYSIS MACHINE * List name and contact numbers for known caregivers / representatives who currently or will assist patient after discharge: GAY BLANDON- [phone] * Verbal permission to speak to the caregivers and representatives has been obtained from the patient. Yes * Community resources currently utilized None * Additional services required to return to the preadmission environment? No * Can the patient safely return to the preadmission environment? Yes * Has this patient been hospitalized within the prior 30 days at any hospital? No Last DP export: 07/08/18 2:47 p Patient Name: ROCCO DURAN Page [phone] at 1630 All edits/amendments must be made on the electronic document DICTATION DATE: 07/08/18 163 PROCUREMENT FORESTER: MITCHEL 07/08/18 1630 RPT#: [id number] DC DATE: STATUS: ADM IN [facility] [address] [place] [address] END OF REPORT
--- NOTE | 2018-07-08 16:49 | MORECARE ---
CASE MANAGEMENT DISCHARGE SUMMARY PATIENT: ROCCO DURAN JR UNIT: [id number] ADM DATE: 06/29/18 AGE: 38 : [birth year] SEX: M ROOM/BED: D.2112 AUTHOR: SULLY,DOC PHYSICIAN: REFERRING PHYSICIAN: VIJAYA DANIELLE MD DATE OF SERVICE: 07/08/18 Discharge Plan Patient Name: ROCCO DURAN Facility: [facility]:[place] : 1980 Planned Disposition: Home with Home Health Anticipated Discharge Date: 07/10/18 Discharge Date: Expected LOS: 11 Initial Reviewer: [email or web address] Initial Review Date: 07/02/2018 Generated: 07/08/18 5:48 pm Comments DCP- Discharge Planning Updated by [id number]: Bubba Jordan on 07/08/18 3:[address] Patient Name: ROCCO DURAN Admission Status: ER Accout number: [id number] Admission Date: 06-29-2018 : 1980 Admission Diagnosis:INFLAMMATORY DISORDERS OF SCROTUM Attending: VIJAYA DANIELLE Current LOS: 9 Anticipated DC Date: 07-10-2018 Planned Disposition: Home with Home Health Primary Insurance: MEDICARE A & B PLANNED EXTERNAL PROVIDER: [facility] Discharge Planning Comments: CM RECEIVED ORDER FOR HOME HEALTH ARRANGEMENT. CM ATTEMPTED TO MEET WITH PT IN ROOM TO DISCUSS DISCHARGE NEEDS AND PLANNING. PT IN DIALYSIS, GAY ADAME PRESENT. CM DISCUSSED AVAILABILITY OF HOME HEALTH, REHAB SERVICES AND MEDICAL EQUIPMENT. DEEP REQUESTED HOME HEALTH WITH [facility] PT HAS USED THEM IN THE PAST WITH GOOD RESULT. CM PROVIDED HOME HEALTH PROVIDER LISTING AND DEEP SIGNED CHOICE FOR [facility]. CM EXPLAINED THAT A CANE IS VILCHIS PAY ITEM AND NOT COVERED BY INSURANCE, ADVISED DEEP TO SHOP [employer] OR DISCOUNT STORE. DEEP REPORTS SHE THINKS THEY HAVE FAMILY OR FRIENDS TO PICK THEM UP FOR TRANSPORTATION HOME. IMPORTANT MESSAGE FROM MEDICARE PROVIDED AND EXPLAINED. PT'S DEEP REPORTS ABILITY TO LEARN AND ASSIST WITH HOME WOUND CARE. CM CALLED [facility], , SPOKE TO WALLY AND PROVIDED REFERRAL INFORMATION. WALLY TO PROCESS AND SCHEDULE FOR HOME HEALTH ADMISSION, WILL CALL CM WITH ADMIT DETERMINATION. CM FAXED REFERRAL FOR [facility] TO [phone]. CM MET WITH PT AND FIANCE IN ROOM AFTER PT RETURNED FROM DIALYSIS, PT IN AGREEMENT WITH [facility], REPORTS HIS DEEP CAN LEARN AND ASSIST WITH WOUND CARE SHE ASSISTS WITH HOME DIALYSIS AND HAS DONE WOUND CARE FOR PT IN THE PAST. CM WAITING [facility] TO ACCEPT OR DECLINE PT FOR HOME HEALTH CARE. Rooming House Inspector: Bubba Jordan DCP- Discharge Planning Updated by [email or web address]: Nelia Henson on 07/02/18 4:[address] Patient Name: ROCCO DURAN Admission Status: ER Accout number: [id number] Admission Date: 06-29-2018 : 1980 Admission Diagnosis: Attending: VIJAYA DANIELLE Current LOS: 3 Anticipated DC Date: Planned Disposition: Home Primary Insurance: MEDICARE A & B Discharge Planning Comments: CM met with patient at bedside. Patient states that he lives with his mamie? Gay [phone]. He plans to return to his home upon discharge. He states he will have family transport him home upon discharge. Patient states he does home hemodialysis 5 days a week. Patient did state that he may need a cane upon discharge. CM will continue to follow and assist as needed with discharge planning / needs Rooming House Inspector: Nelia Henson DCP- Discharge Planning Updated by [email or web address]: Nelia Henson on 07/01/18 5:[address] CM ATTEMPTED TO SEE PATIENT REGARDING DISCHARGE PLANNING. HE IS CURRENTLY GETTING DIALYSIS AND SLEEPING WILL SEE PATIENT IN AM. CM WILL CONTINUE TO FOLLOW AND ASSIST WITH DISCHARGE PLANNING / NEEDS. DCPIA - Discharge Planning Initial Assessment Updated by [id number]: Nelia Henson on 07/02/18 5:17 pm * Is the patient Alert and Oriented? Yes * How many steps to enter\exit or inside your home? * PCP FRANKLYN * [facility] * Preadmission Environment Home with Family * ADLs Independent * Equipment None * Other Equipment HEMO DIALYSIS MACHINE * List name and contact numbers for known caregivers / representatives who currently or will assist patient after discharge: GAY ADAME'- [phone] * Verbal permission to speak to the caregivers and representatives has been obtained from the patient. Yes * Community resources currently utilized None * Additional services required to return to the preadmission environment? No * Can the patient safely return to the preadmission environment? Yes * Has this patient been hospitalized within the prior 30 days at any hospital? No Coverage Notice Reviewer: [id number] Paramjit Jordan Notice Issued Date-Time: 07/08/2018 10:00 Notice Type: Patient Choice Letter Notice Delivered To: Family Member Relationship to Patient: Life Partner Cabinetmaker Apprentice Name: GAY JUAREZ Delivery Method: HAND - Hand Delivered Maureen Days: Prior Verbal Notification: Recipient Understood Notice: Yes Recipient Signature: Yes Med Rec Note Co-signed by Attending: Coverage Notice Comment: [facility] Reviewer: [id number] Paramjit Jordan Notice Issued Date-Time: 07/08/2018 10:00 Notice Type: IM Discharge Notice Notice Delivered To: Other Relationship to Patient: Life Partner Cabinetmaker Apprentice Name: GAY JUAREZ Delivery Method: HAND - Hand Delivered Maureen Days: Prior Verbal Notification: Recipient Understood Notice: Yes Recipient Signature: Yes Med Rec Note Co-signed by Attending: Coverage Notice Comment: Last DP export: 07/08/18 3:30 p Patient Name: ROCCO DURAN Page 11148 at 1649 All edits/amendments must be made on the electronic document DICTATION DATE: 07/08/181647 CARTON CATCHER: MITCHEL 07/08/181647 RPT#: [id number] DC DATE: STATUS: ADM IN [facility] [address] [place] [address] END OF REPORT
[2018-07-08 20:54] VITALS: BP 98/55
[2018-07-09 01:17] VITALS: BP 131/51
[2018-07-09 01:20] VITALS: BP 102/52
[2018-07-09 05:53] VITALS: BP 115/67
[2018-07-09 06:01] LABS: BASOPHILS 0.3 % (0-2); EOSINOPHILS 6.1 % (0-7); IMMATURE GRANULOCYTES 2.4 % (0-5); LYMPHOCYTES 20.3 % (15-50); MCHC 32.1 g/dL (31.0-37.0); MEAN PLATELET VOLUME 9.1 fL (7.4-10.4); MONOCYTES 12.6 % (2-11); NEUTROPHILS 58.3 % (40-80); PLATELET COUNT 302 10x3/uL (130-400); RDW 15.5 % (11.5-14.5); WBC 8.7 10x3/uL (4.8-10.8)
[2018-07-09 06:20] LABS: INR 1.78 (0.85-1.17); PROTIME 20.1 SECONDS (11.6-15.0)
[2018-07-09 06:33] LABS: MCV 96.6 fL (80.0-100.0)
[2018-07-09 06:46] LABS: ALBUMIN 2.2 g/dL (3.4-5.0); ANION GAP 19.9 mmol/L (8-16); BILIRUBIN - TOTAL 0.34 mg/dL (0.2-1.3); CALCIUM 8.5 mg/dL (8.5-10.1); CARBON DIOXIDE 24.4 mmol/L (21.0-32.0); POTASSIUM - SERUM 4.3 mmol/L (3.5-5.1)
[2018-07-09 06:50] LABS: CREATININE - SERUM 11.6 mg/dL (0.6-1.3)
--- NOTE | 2018-07-09 08:12 | MORECARE ---
CASE MANAGEMENT DISCHARGE SUMMARY PATIENT: ROCCO DURAN JR UNIT: [id number] ADM DATE: 06/29/18 AGE: 38 : [birth year] SEX: M ROOM/BED: D.2112 AUTHOR: SULLY,DOC PHYSICIAN: REFERRING PHYSICIAN: VIJAYA DANIELLE MD DATE OF SERVICE: 07/09/18 Discharge Plan Patient Name: ROCCO DURAN Facility: [facility]:[place] : 1980 Planned Disposition: Home with Home Health Anticipated Discharge Date: 07/09/18 Discharge Date: Expected LOS: 10 Initial Reviewer: [id number] Initial Review Date: 07/02/2018 Generated: 07/09/18 9:11 am Comments DCP- Discharge Planning Updated by [email or web address]: Bubba Jordan on 07/09/18 7:[address] Patient Name: ROCCO DURAN Encounter No: [id number] : 1980 Primary Insurance: MEDICARE A & B Anticipated DC Date: 07-09-2018 Planned Disposition: Home with Home Health External Planned Provider: [facility] Discharge Planning Comments: CM CALLED [facility], , SPOKE TO WALLY WHO REPORTS REFERRAL WAS RECEIVED LATE YESTERDAY AND THEY WILL CALL SHORTLY WITH ADMISSION DETERMINATION. CM INFORMED WALLY THAT DR WANTS TO DISCHARGE PT HOME TODAY. CM WAITING [facility] TO ACCEPT OR DECLINE PT FOR HOME HEALTH CARE. [place] Tower Loader: Bubba Jordan DCP- Discharge Planning Updated by [id number]: Bubba Jordan on 07/08/18 3:[address] Patient Name: ROCCO DURAN Admission Status: ER Accout number: [id number] Admission Date: 06-29-2018 : 1980 Admission Diagnosis:INFLAMMATORY DISORDERS OF SCROTUM Attending: VIJAYA DANIELLE Current LOS: 9 Anticipated DC Date: 07-10-2018 Planned Disposition: Home with Home Health Primary Insurance: MEDICARE A & B PLANNED EXTERNAL PROVIDER: [facility] Discharge Planning Comments: CM RECEIVED ORDER FOR HOME HEALTH ARRANGEMENT. CM ATTEMPTED TO MEET WITH PT IN ROOM TO DISCUSS DISCHARGE NEEDS AND PLANNING. PT IN DIALYSIS, GAY ADAME PRESENT. CM DISCUSSED AVAILABILITY OF HOME HEALTH, REHAB SERVICES AND MEDICAL EQUIPMENT. DEEP REQUESTED HOME HEALTH WITH [facility] PT HAS USED THEM IN THE PAST WITH GOOD RESULT. CM PROVIDED HOME HEALTH PROVIDER LISTING AND DEEP SIGNED CHOICE FOR [facility]. CM EXPLAINED THAT A CANE IS VILCHIS PAY ITEM AND NOT COVERED BY INSURANCE, ADVISED DEEP TO SHOP [employer] OR [employer] STORE. DEEP REPORTS SHE THINKS THEY HAVE FAMILY OR FRIENDS TO PICK THEM UP FOR TRANSPORTATION HOME. IMPORTANT MESSAGE FROM MEDICARE PROVIDED AND EXPLAINED. PT'S DEEP REPORTS ABILITY TO LEARN AND ASSIST WITH HOME WOUND CARE. CM CALLED [facility], , SPOKE TO WALLY AND PROVIDED REFERRAL INFORMATION. WALLY TO PROCESS AND SCHEDULE FOR HOME HEALTH ADMISSION, WILL CALL CM WITH ADMIT DETERMINATION. CM FAXED REFERRAL FOR [facility] TO [phone]. CM MET WITH PT AND FIANCE IN ROOM AFTER PT RETURNED FROM DIALYSIS, PT IN AGREEMENT WITH [facility], REPORTS HIS DEEP CAN LEARN AND ASSIST WITH WOUND CARE SHE ASSISTS WITH HOME DIALYSIS AND HAS DONE WOUND CARE FOR PT IN THE PAST. CM WAITING [facility] TO ACCEPT OR DECLINE PT FOR HOME HEALTH CARE. [place] Tower Loader: Bubba Jordan DCP- Discharge Planning Updated by [id number]: Nelia Henson on 07/02/18 4:[address] Patient Name: ROCCO DURAN Admission Status: ER Accout number: [id number] Admission Date: 06-29-2018 : 1980 Admission Diagnosis: Attending: VIJAYA DANIELLE Current LOS: 3 Anticipated DC Date: Planned Disposition: Home Primary Insurance: MEDICARE A & B Discharge Planning Comments: CM met with patient at bedside. Patient states that he lives with his kodak Herrera [phone]. He plans to return to his home upon discharge. He states he will have family transport him home upon discharge. Patient states he does home hemodialysis 5 days a week. Patient did state that he may need a cane upon discharge. CM will continue to follow and assist as needed with discharge planning / needs [place] Tower Loader: Nelia Henson DCP- Discharge Planning Updated by [id number]: Nelia Henson on 07/01/18 5:[address] CM ATTEMPTED TO SEE PATIENT REGARDING DISCHARGE PLANNING. HE IS CURRENTLY GETTING DIALYSIS AND SLEEPING WILL SEE PATIENT IN AM. CM WILL CONTINUE TO FOLLOW AND ASSIST WITH DISCHARGE PLANNING / NEEDS. DCPIA - Discharge Planning Initial Assessment Updated by [id number]: Nelia Henson on 07/02/18 5:17 pm * Is the patient Alert and Oriented? Yes * How many steps to enter\exit or inside your home? * PCP ESTES * [facility] * Preadmission Environment Home with Family * ADLs Independent * Equipment None * Other Equipment HEMO DIALYSIS MACHINE * List name and contact numbers for known caregivers / representatives who currently or will assist patient after discharge: GAY ADAME- [phone] * Verbal permission to speak to the caregivers and representatives has been obtained from the patient. Yes * Community resources currently utilized None * Additional services required to return to the preadmission environment? No * Can the patient safely return to the preadmission environment? Yes * Has this patient been hospitalized within the prior 30 days at any hospital? No Coverage Notice Reviewer: [id number] Jordan Notice Issued Date-Time: 07/08/2018 10:00 Notice Type: Patient Choice Letter Notice Delivered To: Family Member Relationship to Patient: Life Partner Blower Mechanic Name: GAY JUAREZ Delivery Method: HAND - Hand Delivered Maureen Days: Prior Verbal Notification: Recipient Understood Notice: Yes Recipient Signature: Yes Med Rec Note Co-signed by Attending: Coverage Notice Comment: [facility] Reviewer: [id number] Jordan Notice Issued Date-Time: 07/08/2018 10:00 Notice Type: IM Discharge Notice Notice Delivered To: Other Relationship to Patient: Life Partner Blower Mechanic Name: GAY JUAREZ Delivery Method: HAND - Hand Delivered Maureen Days: Prior Verbal Notification: Recipient Understood Notice: Yes Recipient Signature: Yes Med Rec Note Co-signed by Attending: Coverage Notice Comment: Last DP export: 07/08/18 3:49 p Patient Name: ROCCO DURAN Page 32258 at 0812 All edits/amendments must be made on the electronic document DICTATION DATE: 07/09/18810 NECKTIE TURNER: MITCHEL 07/09/18810 RPT#: [id number] DC DATE: STATUS: ADM IN [facility] [address] [place] [address] END OF REPORT
--- NOTE | 2018-07-09 08:24 | MORECARE ---
CASE MANAGEMENT DISCHARGE SUMMARY PATIENT: ROCCO DURAN JR UNIT: [id number] ADM DATE: 06/29/18 AGE: 38 : [birth year] SEX: M ROOM/BED: D.2112 AUTHOR: SULLY,DOC PHYSICIAN: REFERRING PHYSICIAN: VIJAYA DANIELLE MD DATE OF SERVICE: 07/09/18 Discharge Plan Patient Name: ROCCO DURAN Facility: [facility]:[place] : 1980 Planned Disposition: Home with Home Health Anticipated Discharge Date: 07/09/18 Discharge Date: Expected LOS: 10 Initial Reviewer: [id number] Initial Review Date: 07/02/2018 Generated: 07/09/18 9:24 am Comments DCP- Discharge Planning Updated by [id number]: Bubba Jordan on 07/09/18 7:[address] Patient Name: ROCCO DURAN Encounter No: [id number] : 1980 Primary Insurance: MEDICARE A & B Anticipated DC Date: 07-09-2018 Planned Disposition: Home with Home Health External Planned Provider: [facility] Discharge Planning Comments: CM CALLED [facility], , SPOKE TO WALLY WHO REPORTS REFERRAL WAS RECEIVED LATE YESTERDAY AND THEY WILL CALL SHORTLY WITH ADMISSION DETERMINATION. CM INFORMED WALLY THAT DR WANTS TO DISCHARGE PT HOME TODAY. CM WAITING [facility] TO ACCEPT OR DECLINE PT FOR HOME HEALTH CARE. [employer] Product Consultant: Bubba Jordan Appended by Bubba Jordan on 07/09/2018 8:23 CDT: CM RECEIVED CALL FROM WALLY OF [facility], THEY WILL ACCEPT PT AND HAVE ON SCHEDULE FOR HOME HEALTH ADMIT TOMORROW, 07-10-18. HOME HEALTH WILL NEED SPECIFIC WOUND CARE ORDERS FOR HOME HEALTH ADMIT. FOR DISCHARGE, NOTIFY [facility] AT [phone], FAX DISCHARGE INFORMATION WITH WOUND CARE INSTRUCTIONS TO [facility] AT [phone]. MICHELLE ROSS DCP- Discharge Planning Updated by [email or web address]: Bubba Jordan on 07/08/18 3:[address] Patient Name: ROCCO DURAN Admission Status: ER Accout number: [id number] Admission Date: 06-29-2018 : 1980 Admission Diagnosis:INFLAMMATORY DISORDERS OF SCROTUM Attending: VIJAYA DANIELLE Current LOS: 9 Anticipated DC Date: 07-10-2018 Planned Disposition: Home with Home Health Primary Insurance: MEDICARE A & B PLANNED EXTERNAL PROVIDER: [facility] Discharge Planning Comments: CM RECEIVED ORDER FOR HOME HEALTH ARRANGEMENT. CM ATTEMPTED TO MEET WITH PT IN ROOM TO DISCUSS DISCHARGE NEEDS AND PLANNING. PT IN DIALYSIS, GAY ADAME PRESENT. CM DISCUSSED AVAILABILITY OF HOME HEALTH, REHAB SERVICES AND MEDICAL EQUIPMENT. FIILIANA REQUESTED HOME HEALTH WITH [facility] PT HAS USED THEM IN THE PAST WITH GOOD RESULT. CM PROVIDED HOME HEALTH PROVIDER LISTING AND DEEP SIGNED CHOICE FOR [facility]. CM EXPLAINED THAT A CANE IS VILCHIS PAY ITEM AND NOT COVERED BY INSURANCE, ADVISED DEEP TO SHOP [employer] OR [employer] STORE. DEEP REPORTS SHE THINKS THEY HAVE FAMILY OR FRIENDS TO PICK THEM UP FOR TRANSPORTATION HOME. IMPORTANT MESSAGE FROM MEDICARE PROVIDED AND EXPLAINED. PT'S FIANCE REPORTS ABILITY TO LEARN AND ASSIST WITH HOME WOUND CARE. CM CALLED [facility], , SPOKE TO WALLY AND PROVIDED REFERRAL INFORMATION. WALLY TO PROCESS AND SCHEDULE FOR HOME HEALTH ADMISSION, WILL CALL CM WITH ADMIT DETERMINATION. CM FAXED REFERRAL FOR [facility] TO [phone]. CM MET WITH PT AND FIANCE IN ROOM AFTER PT RETURNED FROM DIALYSIS, PT IN AGREEMENT WITH [facility], REPORTS HIS FIANCE CAN LEARN AND ASSIST WITH WOUND CARE SHE ASSISTS WITH HOME DIALYSIS AND HAS DONE WOUND CARE FOR PT IN THE PAST. CM WAITING [facility] TO ACCEPT OR DECLINE PT FOR HOME HEALTH CARE. [employer] Product Consultant: Bubba Jordan DCP- Discharge Planning Updated by [id number]: Nelia Henson on 07/02/18 4:[address] Patient Name: ROCCO DURAN Admission Status: ER Accout number: [id number] Admission Date: 06-29-2018 : 1980 Admission Diagnosis: Attending: VIJAYA DANIELLE Current LOS: 3 Anticipated DC Date: Planned Disposition: Home Primary Insurance: MEDICARE A & B Discharge Planning Comments: CM met with patient at bedside. Patient states that he lives with his kodak Herrera [phone]. He plans to return to his home upon discharge. He states he will have family transport him home upon discharge. Patient states he does home hemodialysis 5 days a week. Patient did state that he may need a cane upon discharge. CM will continue to follow and assist as needed with discharge planning / needs [employer] Product Consultant: Nelia Henson DCP- Discharge Planning Updated by [id number]: Nelia Henson on 07/01/18 5:[address] CM ATTEMPTED TO SEE PATIENT REGARDING DISCHARGE PLANNING. HE IS CURRENTLY GETTING DIALYSIS AND SLEEPING WILL SEE PATIENT IN AM. CM WILL CONTINUE TO FOLLOW AND ASSIST WITH DISCHARGE PLANNING / NEEDS. DCPIA - Discharge Planning Initial Assessment Updated by [id number]: Nelia Henson on 07/02/18 5:17 pm * Is the patient Alert and Oriented? Yes * How many steps to enter\exit or inside your home? * PCP ESTES * Pharm[facility] * Preadmission Environment Home with Family * ADLs Independent * Equipment None * Other Equipment HEMO DIALYSIS MACHINE * List name and contact numbers for known caregivers / representatives who currently or will assist patient after discharge: GAY BLANDON- [phone] * Verbal permission to speak to the caregivers and representatives has been obtained from the patient. Yes * Community resources currently utilized None * Additional services required to return to the preadmission environment? No * Can the patient safely return to the preadmission environment? Yes * Has this patient been hospitalized within the prior 30 days at any hospital? No Coverage Notice Reviewer: [id number] Paramjit Jordan Notice Issued Date-Time: 07/08/2018 10:00 Notice Type: Patient Choice Letter Notice Delivered To: Family Member Relationship to Patient: Life Partner Padded Box Sewer Name: GAY JUAREZ Delivery Method: HAND - Hand Delivered Maureen Days: Prior Verbal Notification: Recipient Understood Notice: Yes Recipient Signature: Yes Med Rec Note Co-signed by Attending: Coverage Notice Comment: [facility] Reviewer: [id number] Paramjit Jordan Notice Issued Date-Time: 07/08/2018 10:00 Notice Type: IM Discharge Notice Notice Delivered To: Other Relationship to Patient: Life Partner Padded Box Sewer Name: GAY JUAREZ Delivery Method: HAND - Hand Delivered Maureen Days: Prior Verbal Notification: Recipient Understood Notice: Yes Recipient Signature: Yes Med Rec Note Co-signed by Attending: Coverage Notice Comment: Last DP export: 07/09/18 7:11 a Patient Name: ROCCO DURAN Page [phone] at 0824 All edits/amendments must be made on the electronic document DICTATION DATE: 07/09/18823 LEATHER BELT LOOP CUTTER: MITCHEL 07/09/18823 RPT#: [id number] DC DATE: STATUS: ADM IN [facility] [address] [place] [address] END OF REPORT
[2018-07-09] MEDS ORDERED: COUMADIN2.5 MG PO (09:42)
[2018-07-09] MEDS ORDERED: PROTONIX40 MG PO (09:43)
[2018-07-09] MEDS ORDERED: RENAGEL800 MG PO (09:43)
[2018-07-09] MEDS ORDERED: MIRALAX17 GM PO (09:43)
[2018-07-09 10:04] VITALS: BP 142/72
--- NOTE | 2018-07-09 16:31 | MORECARE ---
CASE MANAGEMENT DISCHARGE SUMMARY PATIENT: ROCCO DURAN JR UNIT: [id number] ADM DATE: 06/29/18 AGE: 38 : [birth year] SEX: M ROOM/BED: D.2112 AUTHOR: SULLY,DOC PHYSICIAN: REFERRING PHYSICIAN: VIJAYA DANIELLE MD DATE OF SERVICE: 07/09/18 Discharge Plan Patient Name: ROCCO DURAN Facility: [facility]:[place] : 1980 Planned Disposition: Home with Home Health Anticipated Discharge Date: 07/09/18 Discharge Date: Expected LOS: 10 Initial Reviewer: [id number] Initial Review Date: 07/02/2018 Generated: 07/09/18 5:30 pm Comments DCP- Discharge Planning Updated by [id number]: Bubba Joseph on 07/09/18 3:[address] Patient Name: ROCCO DURAN Encounter No: [id number] : 1980 Primary Insurance: MEDICARE A & B Anticipated DC Date: 07-09-2018 Planned Disposition: Home with Home Health External Planned Provider: [facility] Discharge Planning Comments: CM CALLED [facility], , SPOKE TO WALLY WHO REPORTS REFERRAL WAS RECEIVED LATE YESTERDAY AND THEY WILL CALL SHORTLY WITH ADMISSION DETERMINATION. CM INFORMED WALLY THAT DR WANTS TO DISCHARGE PT HOME TODAY. CM WAITING [facility] TO ACCEPT OR DECLINE PT FOR HOME HEALTH CARE. Buggy Ladle Tender: Bubba Joseph Appended by Bubba Joseph on 07/09/2018 8:23 CDT: CM RECEIVED CALL FROM WALLY OF [facility], THEY WILL ACCEPT PT AND HAVE ON SCHEDULE FOR HOME HEALTH ADMIT TOMORROW, 07-10-18. HOME HEALTH WILL NEED SPECIFIC WOUND CARE ORDERS FOR HOME HEALTH ADMIT. FOR DISCHARGE, NOTIFY [facility] AT [phone], FAX DISCHARGE INFORMATION WITH WOUND CARE INSTRUCTIONS TO [facility] AT [phone]. BUBBA JOSEPH, CASE MANAGEMENT Appended by Bubba Joseph on 07/09/2018 16:28 CDT: CM CALLED AND NOTIFIED [facility] OF DISCHARGE TODAY AT [phone], FAXED DISCHARGE INFORMATION WITH WOUND CARE INSTRUCTIONS TO [facility] AT [phone]. HOME HEALTH TO ADMIT TOMORROW. PT REPORTS HAVING TRANSPORT TO PICK HE AND FIILIANA UP TODAY, DENIES FURTHER NEEDS. BUBBA JOSEPH,CASE MANAGEMENT BUBBA JOSEPH, CASE MANAGEMENT DCP- Discharge Planning Updated by [id number]: Bubba Joseph on 07/08/18 3:[address] Patient Name: ROCCO DURAN Admission Status: ER Accout number: [id number] Admission Date: 06-29-2018 : 1980 Admission Diagnosis:INFLAMMATORY DISORDERS OF SCROTUM Attending: VIJAYA DANIELLE Current LOS: 9 Anticipated DC Date: 07-10-2018 Planned Disposition: Home with Home Health Primary Insurance: MEDICARE A & B PLANNED EXTERNAL PROVIDER: [facility] Discharge Planning Comments: CM RECEIVED ORDER FOR HOME HEALTH ARRANGEMENT. CM ATTEMPTED TO MEET WITH PT IN ROOM TO DISCUSS DISCHARGE NEEDS AND PLANNING. PT IN DIALYSIS, DEEP, SHARON JUAREZ PRESENT. CM DISCUSSED AVAILABILITY OF HOME HEALTH, REHAB SERVICES AND MEDICAL EQUIPMENT. DEEP REQUESTED HOME HEALTH WITH [facility] PT HAS USED THEM IN THE PAST WITH GOOD RESULT. CM PROVIDED HOME HEALTH PROVIDER LISTING AND DEEP SIGNED CHOICE FOR [facility]. CM EXPLAINED THAT A CANE IS VILCHIS PAY ITEM AND NOT COVERED BY INSURANCE, ADVISED DEEP TO SHOP [employer] OR [employer] STORE. DEEP REPORTS SHE THINKS THEY HAVE FAMILY OR FRIENDS TO PICK THEM UP FOR TRANSPORTATION HOME. IMPORTANT MESSAGE FROM MEDICARE PROVIDED AND EXPLAINED. PT'S FIILIANA REPORTS ABILITY TO LEARN AND ASSIST WITH HOME WOUND CARE. CM CALLED [facility], , SPOKE TO WALLY AND PROVIDED REFERRAL INFORMATION. WALLY TO PROCESS AND SCHEDULE FOR HOME HEALTH ADMISSION, WILL CALL CM WITH ADMIT DETERMINATION. CM FAXED REFERRAL FOR [facility] TO [phone]. CM MET WITH PT AND FIANCE IN ROOM AFTER PT RETURNED FROM DIALYSIS, PT IN AGREEMENT WITH [facility], REPORTS HIS FIILIANA CAN LEARN AND ASSIST WITH WOUND CARE SHE ASSISTS WITH HOME DIALYSIS AND HAS DONE WOUND CARE FOR PT IN THE PAST. CM WAITING [facility] TO ACCEPT OR DECLINE PT FOR HOME HEALTH CARE. Buggy Ladle Tender: Bubba Joseph DCP- Discharge Planning Updated by [id number]: Nelia Natividad on 07/02/18 4:[address] Patient Name: ROCCO DURAN Admission Status: ER Accout number: [id number] Admission Date: 06-29-2018 : 1980 Admission Diagnosis: Attending: VIJAYA DANIELLE Current LOS: 3 Anticipated DC Date: Planned Disposition: Home Primary Insurance: MEDICARE A & B Discharge Planning Comments: CM met with patient at bedside. Patient states that he lives with his fichris? Sharon [phone]. He plans to return to his home upon discharge. He states he will have family transport him home upon discharge. Patient states he does home hemodialysis 5 days a week. Patient did state that he may need a cane upon discharge. CM will continue to follow and assist as needed with discharge planning / needs Buggy Ladle Tender: Nelia Henson DCP- Discharge Planning Updated by [id number]: Nelia Romeror on 07/01/18 5:[address] CM ATTEMPTED TO SEE PATIENT REGARDING DISCHARGE PLANNING. HE IS CURRENTLY GETTING DIALYSIS AND SLEEPING WILL SEE PATIENT IN AM. CM WILL CONTINUE TO FOLLOW AND ASSIST WITH DISCHARGE PLANNING / NEEDS. DCPIA - Discharge Planning Initial Assessment Updated by [id number]: Nelia Romeror on 07/02/18 5:17 pm * Is the patient Alert and Oriented? Yes * How many steps to enter\exit or inside your home? * PCP FRANKLYN * Pharmacy [facility] * Preadmission Environment Home with Family * ADLs Independent * Equipment None * Other Equipment HEMO DIALYSIS MACHINE * List name and contact numbers for known caregivers / representatives who currently or will assist patient after discharge: SHARONTE HAMILTON [phone] * Verbal permission to speak to the caregivers and representatives has been obtained from the patient. Yes * Community resources currently utilized None * Additional services required to return to the preadmission environment? No * Can the patient safely return to the preadmission environment? Yes * Has this patient been hospitalized within the prior 30 days at any hospital? No Coverage Notice Reviewer: [id number] - Bubba Joseph Notice Issued Date-Time: 07/08/2018 10:00 Notice Type: Patient Choice Letter Notice Delivered To: Family Member Relationship to Patient: Life Partner Marine Engine Mechanic Name: SHARON GILBERT Delivery Method: HAND - Hand Delivered Maureen Days: Prior Verbal Notification: Recipient Understood Notice: Yes Recipient Signature: Yes Med Rec Note Co-signed by Attending: Coverage Notice Comment: [facility] Reviewer: [id number] - Bubba Joseph Notice Issued Date-Time: 07/08/2018 10:00 Notice Type: IM Discharge Notice Notice Delivered To: Other Relationship to Patient: Life Partner Marine Engine Mechanic Name: SHARON JUAREZ Delivery Method: HAND - Hand Delivered Maureen Days: Prior Verbal Notification: Recipient Understood Notice: Yes Recipient Signature: Yes Med Rec Note Co-signed by Attending: Coverage Notice Comment: Last DP export: 07/09/18 7:24 a Patient Name: ROCCO DURAN Page [id number] at 1631 All edits/amendments must be made on the electronic document DICTATION DATE: 07/09/18 163 ASSOCIATE MANAGER: MITCHEL 07/09/18 1630 RPT#: [id number] DC DATE: STATUS: ADM IN [facility] [address] [place] [address] END OF REPORT
[2018-07-09 16:47] VITALS: BP 115/51
== END 2018-07-09 17:32 | disposition home health service (06) | DRG 853 ==
LOC: D.ER 18:01 → D.EDHOLD 20:29 → D.M2 20:29 → D.ICU 20:29 → D.M2 20:50 → D.ICU 22:22 → D.M2 07-03 15:59
PROVIDERS: Emergency Medicine; Internal Medicine Nephrology; Surgery; Urology; ADMIT Internal Medicine Nephrology; ATTEND Internal Medicine Nephrology
PROC: 0VB50ZZ Excision of Scrotum, Open Approach (ICD-10-PCS; principal; 2018-06-29 22:58)
PROC: 0V950ZZ Drainage of Scrotum, Open Approach (ICD-10-PCS; 2018-06-29 22:58)
PROC: 0JBB0ZZ Excision of Perineum Subcutaneous Tissue and Fascia, Open Approach (ICD-10-PCS; 2018-06-29 22:58)
PROC: 0TJB8ZZ Inspection of Bladder, Via Natural or Artificial Opening Endoscopic (ICD-10-PCS; 2018-06-29 22:58)
PROC: 0VJ80ZZ Inspection of Scrotum and Tunica Vaginalis, Open Approach (ICD-10-PCS; 2018-07-01)
PROC: 0VB07ZX Excision of Prostate, Via Natural or Artificial Opening, Diagnostic (ICD-10-PCS; 2018-07-04)
DX: A41.9 Sepsis, unspecified organism (principal); N18.6 End stage renal disease; G92 Toxic encephalopathy; J96.01 Acute respiratory failure with hypoxia; A48.0 Gas gangrene; I12.0 Hypertensive chronic kidney disease with stage 5 chronic kidney disease or end stage renal disease; R63.0 Anorexia; Z68.35 Body mass index [BMI] 35.0-35.9, adult; E11.22 Type 2 diabetes mellitus with diabetic chronic kidney disease; Z99.2 Dependence on renal dialysis; I73.9 Peripheral vascular disease, unspecified; E66.01 Morbid (severe) obesity due to excess calories; D63.1 Anemia in chronic kidney disease; R16.2 Hepatomegaly with splenomegaly, not elsewhere classified; E11.65 Type 2 diabetes mellitus with hyperglycemia; F17.200 Nicotine dependence, unspecified, uncomplicated

== ENCOUNTER 2020-04-29 16:17 | Inpatient (IN) | payer MEDICARE ==
[~2020-04-29] VITALS: Ht 190.5 cm; Wt 127.0 kg
[~2020-04-29 16:17] MED LIST changes: +BENICAR5 MG PO; +LEVEMIR IN100 UNITS/ SC; +MIRALAX17 GM PO; -NOVOLOG100 U/M1 SQ; +NOVOLOG100 UNIT/1 SC; +PROTONIX40 MG PO; +RENAGEL800 MG PO; +TRESIBA FL100 UNIT/1 SC
[2020-04-29 17:18] LABS: BASOPHILS 0.5 % (0-2); EOSINOPHILS 0.1 % (0-7); HEMOGLOBIN 8.9 g/dL (13.5-17.5); IMMATURE GRANULOCYTES 5.2 % (0-5); LYMPHOCYTE ABS# 1.93 10x3/uL (1.32-3.57); LYMPHOCYTES 19.4 % (15-50); MCHC 30.7 g/dL (31.0-37.0); MCV 91.2 fL (80.0-100.0); MEAN PLATELET VOLUME 8.9 fL (7.4-10.4); MONOCYTES 6.4 % (2-11); NEUTROPHIL ABS# 6.79 10x3/uL (1.78-5.38); NEUTROPHILS 68.4 % (40-80); RBC 3.18 10x6/uL (4.20-6.10); RDW 19.2 % (11.5-14.5); WBC 9.9 10x3/uL (4.8-10.8)
[2020-04-29 17:19] LABS: PLATELET COUNT 351 10x3/uL (130-400)
[2020-04-29 17:25] LABS: INR 1.14 (0.85-1.17); PROTIME 13.5 SECONDS (11.6-15.0)
[2020-04-29 17:31] LABS: ANION GAP 15.1 mmol/L (8-16); CALCIUM 9.2 mg/dL (8.5-10.1); CARBON DIOXIDE 27.9 mmol/L (21.0-32.0); CREATININE - SERUM 11.9 mg/dL (0.6-1.3)
[2020-04-29 17:37] LABS: VANCOMYCIN - RANDOM 14.9 ug/mL (10.0-20.0)
--- NOTE | 2020-04-29 18:37 | NUR ---
ATTEMPTED IV INSERTION IN PT RT HAND, UNSUCCESSFUL, CALLED ER AND ICU FOR NURSE TO COME TRY, PT SITTING IN CHAIR AT BEDISDE, NO S/S OF DISTRESS, CONTINUE WITH PLAN OF CARE
--- NOTE | 2020-04-29 19:15 | NUR ---
PT AT REST WITH EYES CLOSED PRESENT AND DENIES HE HAS NEEDS AT THIS TIME BED LOW AND LOCKED CALL LIGHT IN REACH
[2020-04-29 21:36] VITALS: BP 170/74
[2020-04-30 01:59] VITALS: BP 197/115
--- NOTE | 2020-04-30 05:05 | NUR ---
LAB GAVE ME STUFF AND ASKED ME TO DRAW PT AT THIS TIME
--- NOTE | 2020-04-30 05:43 | NUR ---
I have reviewed this patient and I concur with the Shift Assessment completed by the Licensed Practical Nurse today this shift.
[2020-04-30 05:56] VITALS: BP 190/100
[2020-04-30 06:55] LABS: BASOPHILS 0.1 % (0-2); EOSINOPHILS 0 % (0-7); HEMATOCRIT 26.6 % (42.0-54.0); HEMOGLOBIN 7.9 g/dL (13.5-17.5); IMMATURE GRANULOCYTES 1.7 % (0-5); LYMPHOCYTE ABS# 1.65 10x3/uL (1.32-3.57); LYMPHOCYTES 14.4 % (15-50); MCH 27.3 pg (26.0-34.0); MCHC 29.7 g/dL (31.0-37.0); MONOCYTES 7.1 % (2-11); NEUTROPHIL ABS# 8.77 10x3/uL (1.78-5.38); NEUTROPHILS 76.7 % (40-80); PLATELET COUNT 331 10x3/uL (130-400); RBC 2.89 10x6/uL (4.20-6.10); RDW 19.5 % (11.5-14.5); WBC 11.4 10x3/uL (4.8-10.8)
[2020-04-30 07:00] LABS: ANION GAP 14.9 mmol/L (8-16); CALCIUM 8.8 mg/dL (8.5-10.1); CARBON DIOXIDE 25.8 mmol/L (21.0-32.0); CREATININE - SERUM 12.3 mg/dL (0.6-1.3); VANCOMYCIN - RANDOM 26.9 ug/mL (10.0-20.0)
[2020-04-30 07:03] LABS: POTASSIUM - SERUM 6.7 mmol/L (3.5-5.1)
[2020-04-30 07:24] LABS: INR 1.19 (0.85-1.17)
--- NOTE | 2020-04-30 07:50 | NUR ---
ALERT AND ORIENTED. LUNGS CLEAR BILATERALLY. HEART SOUNDS S1 AND S2 HEARD IN ALL COLÓN. BOWEL SOUNDS ACTIVE X 4. IV TO RIGHT HEMOSPLIT PATENT WITHOUT REDNESS. DENIES NEEDS. BED LOW. CALL CARLISLE AND PERSONAL ITEMS IN REACH. WILL CONTINUE TO MONITOR.
--- NOTE | 2020-04-30 09:30 | NUR ---
EKG PERFORMED AND ON CHART.
[2020-04-30 09:49] VITALS: BP 194/99
--- NOTE | 2020-04-30 11:26 | NUR ---
PATIENT CURRENTLY IN DIALYSIS. BEING DIALYZED PRIOR TO PROCEDURE.
--- NOTE | 2020-04-30 12:05 | NUR ---
PATIENT STILL IN DIALYSIS.
[2020-04-30 13:24] VITALS: Ht 190.5 cm; Wt 127.0 kg
[2020-04-30 17:24] VITALS: BP 164/97
[2020-04-30 17:28] VITALS: BP 164/97
[2020-04-30 22:04] VITALS: BP 161/73
[2020-05-01 01:28] VITALS: BP 174/67
--- NOTE | 2020-05-01 03:12 | NUR ---
I have reviewed this patient and I concur with the Shift Assessment completed by the Licensed Practical Nurse today this shift.
--- NOTE | 2020-05-01 06:00 | NUR ---
PTs ROOM PHONE NOT WORKING. CALLED BERTHA JONES, NO ANSWER. VOICEMAIL LEFT PER REQUEST, NOTIFYING OF NEW ROOM NUMBER AND TO CALL BACK.
[2020-05-01 06:01] VITALS: BP 153/56
[2020-05-01 08:39] LABS: BASOPHILS 0.6 % (0-2); EOSINOPHILS 1.1 % (0-7); HEMATOCRIT 27.5 % (42.0-54.0); HEMOGLOBIN 8.3 g/dL (13.5-17.5); IMMATURE GRANULOCYTES 1.3 % (0-5); LYMPHOCYTE ABS# 2.35 10x3/uL (1.32-3.57); LYMPHOCYTES 23.2 % (15-50); MCHC 30.2 g/dL (31.0-37.0); MCV 92.9 fL (80.0-100.0); MEAN PLATELET VOLUME 8.7 fL (7.4-10.4); MONOCYTES 13.8 % (2-11); NEUTROPHIL ABS# 6.06 10x3/uL (1.78-5.38); PLATELET COUNT 301 10x3/uL (130-400); RBC 2.96 10x6/uL (4.20-6.10); WBC 10.1 10x3/uL (4.8-10.8)
--- NOTE | 2020-05-01 09:00 | NUR ---
ASSESSMENT PER FLOW SHEET. PATIENT IS WITHOUT DISTRESS.CALL LIGHT IN REACH
[2020-05-01 09:12] VITALS: BP 136/77
[2020-05-01 09:35] LABS: ANION GAP 15.7 mmol/L (8-16); CALCIUM 8.9 mg/dL (8.5-10.1); CARBON DIOXIDE 28.8 mmol/L (21.0-32.0); CREATININE - SERUM 9.5 mg/dL (0.6-1.3)
[2020-05-01 09:38] LABS: POTASSIUM - SERUM 4.5 mmol/L (3.5-5.1)
--- NOTE | 2020-05-01 10:31 | NUR ---
[facility]
--- NOTE | 2020-05-01 10:57 | MORECARE ---
CASE MANAGEMENT DISCHARGE SUMMARY PATIENT: ROCCO DURAN JR UNIT: [id number] ADM DATE: 04/29/20 AGE: 40 : [birth year] SEX: M ROOM/BED: D.2214 AUTHOR: YAMEL VIRK PHYSICIAN: REFERRING PHYSICIAN: ARON SMITH MD DATE OF SERVICE: 05/01/20 Discharge Plan Patient Name: ROCCO DURAN [facility] [facility] 1980 Planned Disposition: Home Anticipated Discharge Date: 05/01/20 Discharge Date: Expected LOS: 2 Initial Reviewer: [id number] Initial Review Date: 04/29/2020 Generated: 05/01/20 11:56 am Coverage Notice Reviewer: [id number] - Chuck Domingo Notice Issued Date-Time: 05/01/2020 10:15 Notice Type: IM Discharge Notice Notice Delivered To: Patient Relationship to Patient: Self Trip Rider Name: Delivery Method: HAND - Hand Delivered Maureen Days: Prior Verbal Notification: Recipient Understood Notice: Yes Recipient Signature: Yes Med Rec Note Co-signed by Attending: Coverage Notice Comment: DC IMM delivered, explained, signed by the patient, and placed in chart. Patient Name: ROCCO DURAN Page [phone] at 1057 All edits/amendments must be made on the electronic document DICTATION DATE: 05/01/20 1056 GRAIN ELEVATOR AGENT: MITCHEL 05/01/20 1056 RPT#: [id number] DC DATE: STATUS: ADM IN [facility] [address] [place] [address] END OF REPORT
--- NOTE | 2020-05-01 11:04 | MORECARE ---
CASE MANAGEMENT DISCHARGE SUMMARY PATIENT: ROCCO DURAN JR UNIT: [id number] ADM DATE: 04/29/20 AGE: 40 : [birth year] SEX: M ROOM/BED: D.2214 AUTHOR: YAMEL VIRK PHYSICIAN: REFERRING PHYSICIAN: ARON SMITH MD DATE OF SERVICE: 05/01/20 Discharge Plan Patient Name: ROCCO DURAN Facility: [facility]:[place] : 1980 Planned Disposition: Home Anticipated Discharge Date: 05/01/20 Discharge Date: Expected LOS: 2 Initial Reviewer: [id number] Initial Review Date: 04/29/2020 Generated: 05/01/20 12:03 pm DCPIA - Discharge Planning Initial Assessment Updated by [id number]: Chuck Domingo on 05/01/20 10:59 am * Is the patient Alert and Oriented? Yes * How many steps to enter\exit or inside your home? 1/0 * PCP Dr. Vera Lind at [facility] * Pharmacy [facility] in [place] * Preadmission Environment Home with Family * ADLs Independent * Equipment Nebulizer Other Wheelchair * Other Equipment Home Oxygen Dialysis equipment * List name and contact numbers for known caregivers / representatives who currently or will assist patient after discharge: Sharon Jaramillo () [phone] * Verbal permission to speak to the caregivers and representatives has been obtained from the patient. Yes * Community resources currently utilized None * Please name any agencies selected above. Dialysis at [facility] * Additional services required to return to the preadmission environment? No * Can the patient safely return to the preadmission environment? Yes * Has this patient been hospitalized within the prior 30 days at any hospital? Yes Coverage Notice Reviewer: [id number] - Chuck Domingo Notice Issued Date-Time: 05/01/2020 10:15 Notice Type: IM Discharge Notice Notice Delivered To: Patient Relationship to Patient: Self Net Application Architect Name: Delivery Method: HAND - Hand Delivered Maureen Days: Prior Verbal Notification: Recipient Understood Notice: Yes Recipient Signature: Yes Med Rec Note Co-signed by Attending: Coverage Notice Comment: DC IMM delivered, explained, signed by the patient, and placed in chart. Last DP export: 05/01/20 9:57 a Patient Name: ROCCO DURAN Page [id number] at 1104 All edits/amendments must be made on the electronic document DICTATION DATE: 05/01/201102 MULTIPLE SPINDLE SCREW MACHINE OPERATOR: MITCHEL 05/01/201102 RPT#: [id number] DC DATE: STATUS: ADM IN [facility] [address] [place] [address] END OF REPORT
--- NOTE | 2020-05-01 11:11 | MORECARE ---
CASE MANAGEMENT DISCHARGE SUMMARY PATIENT: ROCCO DURAN JR UNIT: [id number] ADM DATE: 04/29/20 AGE: 40 : 82 SEX: M ROOM/BED: D.2214 AUTHOR: YAMEL VIRK PHYSICIAN: REFERRING PHYSICIAN: ARON SMITH MD DATE OF SERVICE: 05/01/20 Discharge Plan Patient Name: ROCCO DURAN Facility: [facility]:[place] : 1980 Planned Disposition: Home Anticipated Discharge Date: 05/01/20 Discharge Date: Expected LOS: 2 Initial Reviewer: [id number] Initial Review Date: 04/29/2020 Generated: 05/01/20 12:10 pm Comments DCP- Discharge Planning Updated by [id number]: Chuck Domingo on 05/01/20 10:[address] CM met with patient to complete DC plan and to evaluate needs. Patient stated that he readmitted because his dialysis catheter had a hole in it and he needed a new one. Patient stated that he was able to obtain his medications and keep his follow up appointments. Patient declined HHS, SNF, IPR, and DME. Patient voiced no other needs at this time and is satisfied with DC plan. DC IMM delivered, explained, signed by the patient, and placed in chart. Signed form also left with the patient. CM will continue to follow and will assist as needed with dc plans/needs. DCPIA - Discharge Planning Initial Assessment Updated by [id number]: Chuck Domingo on 05/01/20 10:59 am * Is the patient Alert and Oriented? Yes * How many steps to enter\exit or inside your home? 1/0 * PCP [facility] Vera Lind at [facility] * Pharmacy [facility] in [place] * Preadmission Environment Home with Family * ADLs Independent * Equipment Nebulizer Other Wheelchair * Other Equipment Home Oxygen Dialysis equipment * List name and contact numbers for known caregivers / representatives who currently or will assist patient after discharge: Sharon Jaramillo () [phone] * Verbal permission to speak to the caregivers and representatives has been obtained from the patient. Yes * Community resources currently utilized None * Please name any agencies selected above. Dialysis at [facility] * Additional services required to return to the preadmission environment? No * Can the patient safely return to the preadmission environment? Yes * Has this patient been hospitalized within the prior 30 days at any hospital? Yes Coverage Notice Reviewer: [id number] Paramjit Domingo Notice Issued Date-Time: 05/01/2020 10:15 Notice Type: IM Discharge Notice Notice Delivered To: Patient Relationship to Patient: Self Farm Operator Name: Delivery Method: HAND - Hand Delivered Maureen Days: Prior Verbal Notification: Recipient Understood Notice: Yes Recipient Signature: Yes Med Rec Note Co-signed by Attending: Coverage Notice Comment: DC IMM delivered, explained, signed by the patient, and placed in chart. Last DP export: 05/01/20 10:04 a Patient Name: ROCCO DURAN Page 15564 at 1111 All edits/amendments must be made on the electronic document DICTATION DATE: 05/01/20 111 SPLICING SUPERVISOR: MITCHEL 05/01/20 1110 RPT#: [id number] DC DATE: STATUS: ADM IN [facility] [address] [place] [address] END OF REPORT
--- NOTE | 2020-05-01 15:00 | NUR ---
BACK FROM DIALYSIS BP 95/52. PATIENT STATES THAT HIS REGULAR BP AFTER DIALYSIS. HE WANTS TO GO HOME.[facility] CALLED FOR TRANSPORT HOME.
--- NOTE | 2020-05-01 15:08 | NUR ---
DISCHARGE INSTRUCTIONS,STATES UNDERSTANDING.CALL FOR [facility] HOME
--- NOTE | 2020-05-01 15:18 | NUR ---
LEFT UNIT VIA [facility] FOR TRANSPORT HOME
--- NOTE | 2020-05-03 15:10 | MORECARE ---
CASE MANAGEMENT DISCHARGE SUMMARY PATIENT: ROCCO DURAN JR UNIT: [id number] ADM DATE: 04/29/20 AGE: 40 : [birth year] SEX: M ROOM/BED: D.2214 AUTHOR: YAMEL VIRK PHYSICIAN: REFERRING PHYSICIAN: ARON SMITH MD DATE OF SERVICE: 05/03/20 Discharge Plan Patient Name: ROCCO DURAN Facility: [facility]:[place] : 1980 Planned Disposition: Home Anticipated Discharge Date: 05/01/20 Discharge Date: 05/01/2020 Expected LOS: 2 Initial Reviewer: [email or web address] Initial Review Date: 04/29/2020 Generated: 05/03/20 4:10 pm Comments DCP- Discharge Planning Updated by [email or web address]: Chuck Domingo on 05/01/20 10:[address] CM met with patient to complete DC plan and to evaluate needs. Patient stated that he readmitted because his dialysis catheter had a hole in it and he needed a new one. Patient stated that he was able to obtain his medications and keep his follow up appointments. Patient declined HHS, SNF, IPR, and DME. Patient voiced no other needs at this time and is satisfied with DC plan. DC IMM delivered, explained, signed by the patient, and placed in chart. Signed form also left with the patient. CM will continue to follow and will assist as needed with dc plans/needs. DCPIA - Discharge Planning Initial Assessment Updated by [email or web address]: Chuck Domingo on 05/01/20 10:59 am * Is the patient Alert and Oriented? Yes * How many steps to enter\exit or inside your home? 1/0 * PCP Dr[facility] Vera Lind at [facility] * Pharmacy [facility] in [place] * Preadmission Environment Home with Family * ADLs Independent * Equipment Nebulizer Other Wheelchair * Other Equipment Home Oxygen Dialysis equipment * List name and contact numbers for known caregivers / representatives who currently or will assist patient after discharge: Sharon Jaramillo ([place]) [phone] * Verbal permission to speak to the caregivers and representatives has been obtained from the patient. Yes * Community resources currently utilized None * Please name any agencies selected above. Dialysis at [facility], [place] * Additional services required to return to the preadmission environment? No * Can the patient safely return to the preadmission environment? Yes * Has this patient been hospitalized within the prior 30 days at any hospital? Yes Coverage Notice Reviewer: [id number] Paramjit CeballosChuckmaria eugenia Etiennenes Notice Issued Date-Time: 05/01/2020 10:15 Notice Type: IM Discharge Notice Notice Delivered To: Patient Relationship to Patient: Self Sports Medicine Trainer Name: Delivery Method: HAND - Hand Delivered Maureen Days: Prior Verbal Notification: Recipient Understood Notice: Yes Recipient Signature: Yes Med Rec Note Co-signed by Attending: Coverage Notice Comment: DC IMM delivered, explained, signed by the patient, and placed in chart. Last DP export: 05/01/20 10:11 a Patient Name: ROCCO DURAN Page [id number] at 1510 All edits/amendments must be made on the electronic document DICTATION DATE: 05/03/20 1510 INSURANCE VERIFICATION CLERK: MITCHEL 05/03/20 1510 RPT#: [id number] DC DATE:05/01/20 STATUS: DIS IN [facility] [address] [place] [address] END OF REPORT
--- NOTE | 2020-06-17 17:14 | OP ---
PATIENT NAME: ROCCO DURAN JR MEDICAL RECORD: [id number] LOCATION:D.MS [address]2214 ADMISSION DATE:04/29/20 SURGEON: JITENDRA DELVALLE MD DATE OF OPERATION: 04/30/2020 PRINCIPAL DIAGNOSIS: Malfunctioning HemoSplit catheter, likely infected. POSTOPERATIVE DIAGNOSIS: Malfunctioning HemoSplit catheter, likely infected. PROCEDURES: 1. New right-sided HemoSplit catheter insertion (a tunneled cuffed dual-lumen hemodialysis catheter) under fluoroscopic guidance. 2. Immediate surgeon interpretation of the fluoroscopic images. SURGEON: Jitendra Delvalle MD PARAEDUCATOR: None. BLOOD LOSS: Minimal. ANESTHESIA: General. COMPLICATIONS: None. The opening to the HemoSplit catheter entry site has widened significantly and there is some drainage. This is very concerning for HemoSplit catheter infection. DESCRIPTION OF PROCEDURE: The patient was conveyed to the operating room electively on 04/30/2020. General anesthesia was induced by the anesthesia staff. A 0.035 Glidewire was advanced through the HemoSplit catheter. I then bluntly dissected around the HemoSplit catheter cuff and removed the HemoSplit catheter in its entirety. I then chose a different exit site for HemoSplit catheter, which was inferior to the current exit site. I was able to take a hemostat and dissect subcutaneously up to the Glidewire. I was able to bring the Glidewire out through this new entry site. I loaded the new HemoSplit catheter, which was a 19-cm HemoSplit catheter over the Glidewire. This was advanced under fluoroscopy. No radiologist was present for this procedure. Static fluoroscopic images were obtained and are kept in the PACS system. The surgeon interpretation of the radiographic images is dictated within the body of this operative note. The HemoSplit catheter cuff was buried in the subcutaneous tissues. I then closed the former HemoSplit catheter exit site with a horizontal mattress 3-0 Vicryl Rapide suture. Through the new HemoSplit catheter, it flushed easily and aspirated dark, nonpulsatile blood. I then topped off both lumens of HemoSplit catheter with the appropriate amount of concentrated heparin. The flange of the HemoSplit catheter was sutured to the underlying skin with 2-0 nylons. A sterile dressing was applied. TRANSINT:[id number] Voice Confirmation ID: [id number] DOCUMENT ID: [id number] OPERATIVE REPORT [id number] ROCCO DURAN JR, ROBERT MD at 1714 CC: [id number] DICTATION DATE: 06/17/20 1616 OFFICE COPY SELECTOR: 06/17/20 1657 DIS IN 05/01/20 [id number] [place] [address]
== END 2020-05-01 15:19 | disposition home or self-care (01) | DRG 314 ==
LOC: D.MS 16:17
PROVIDERS: Surgery; ADMIT Internal Medicine Nephrology; ATTEND Internal Medicine Nephrology
PROC: 02HV33Z Insertion of Infusion Device into Superior Vena Cava, Percutaneous Approach (ICD-10-PCS; 2020-04-30)
PROC: 0JH63XZ Insertion of Tunneled Vascular Access Device into Chest Subcutaneous Tissue and Fascia, Percutaneous Approach (ICD-10-PCS; principal; 2020-04-30 15:15)
DX: T82.7XXA Infection and inflammatory reaction due to other cardiac and vascular devices, implants and grafts, initial encounter (principal); N18.6 End stage renal disease; I12.0 Hypertensive chronic kidney disease with stage 5 chronic kidney disease or end stage renal disease; D68.59 Other primary thrombophilia; Y83.9 Surgical procedure, unspecified as the cause of abnormal reaction of the patient, or of later complication, without mention of misadventure at the time of the procedure; E10.22 Type 1 diabetes mellitus with diabetic chronic kidney disease; Z99.2 Dependence on renal dialysis; Z79.4 Long term (current) use of insulin; K21.9 Gastro-esophageal reflux disease without esophagitis; E87.5 Hyperkalemia